=== PATIENT | female | born 1945 | race Caucasian/White ===

== ENCOUNTER 2021-07-08 19:04 | Emergency (ER) | payer MEDICARE ==
--- NOTE | 2021-07-08 20:54 | RAD REPORT ---
EXAM DESCRIPTION: CT - Head Brain Wo Cont - 07/08/2021 8:48 pm CLINICAL HISTORY: Dizziness COMPARISON: 2017 TECHNIQUE: Computed axial tomography of the head was obtained. IV contrast was not requested. All CT scans are performed using dose optimization technique as appropriate and may include automated exposure control or mA/KV adjustment according to patient size. FINDINGS: An intracranial bleed is not seen . The ventricles are normal in caliber. No extra-axial fluid collection is noted. Fluid within the sinuses/ mastoids is not seen. IMPRESSION: No acute intracranial abnormality is seen. If patient's symptoms persist MRI of the bra in would be recommended.
[2021-07-08 21:01] LABS: Absolute Lymphocytes (CBC) 2.1 K/uL (0.7-4.9); Basophils % 0.8 % (0-1.3); Lymphocytes % 22.9 % (15.3-44.8); MPV 8.8 fL (7.6-11.3); RBC Red Blood Cell Count 4.46 M/uL (3.86-4.86)
[2021-07-08 21:04] LABS: Urine Blood Negative (Negative); Urine Glucose Negative (Negative); Urine Protein Negative (Negative)
[2021-07-08 21:19] LABS: Protime INR 0.99
[2021-07-08 21:25] LABS: ALT/SGPT 24 U/L (12-78); Albumin 3.8 g/dL (3.4-5.0); Alkaline Phosphatase 138 U/L (45-117); BUN Blood Urea Nitrogen 22 mg/dL (7-18); Bicarbonate 28 mmol/L (21-32); Bilirubin Direct 0.1 mg/dL (0-0.2); Bilirubin Total 0.9 mg/dL (0.2-1.0); Glucose Level 121 mg/dL (74-106); NT PRO-BNP 411 pg/mL (<450); Protein, Total 8.5 g/dL (6.4-8.2); Sodium Level 140 mmol/L (136-145); Troponin (Emerg Dept Use Only) < 0.02 ng/mL (0.0-0.045)
[2021-07-08 21:30] LABS: AST/SGOT 40 U/L (15-37); Magnesium 2.3 mg/dL (1.8-2.4); Potassium 4.7 mmol/L (3.5-5.1)
[2021-07-08 21:38] LABS: Urine Bacteria <20 /HPF (<20); Urine Mucus 1+ /HPF (NONE SEEN); Urine RBC <5 /HPF (NONE SEEN)
--- NOTE | 2021-07-08 21:51 | RAD REPORT ---
EXAM DESCRIPTION: Bridgett Single View07/08/2021 9:20 pm CLINICAL HISTORY: Tachycardia COMPARISON: 2019 FINDINGS: Several nodules are present within the lungs bilaterally. Moderate to marked bilateral pulmonary opacities have mildly progressed. Bilateral upper lobe scarring is present. The lungs are hyperaerated. Heart is normal size IMPRESSION: Moderate to marked bilateral pulmonary opacities have mildly progressed. This probably i ndicates an infectious process superimposed over pulmonary fibrosis and bronchiectasis. Several lung nodules probably infectious copd
[2021-07-08] MEDS ORDERED: NA CHLORIDE 0.9% 500 ML ONE (21:59)
[2021-07-08] MEDS ORDERED: levoFLOXacin 500 MG TAB ONE (23:13)
--- NOTE | 2021-07-08 23:15 | ER ---
Nurse's Notes [facility] Name: Licha Nino Age: 76 yrs Sex: Female : 1945 Arrival Date: 07/08/2021 Time: 19:09 Bed 18 Private MD: Diagnosis: Dizziness and giddiness;Pneumonia, unspecified organism Presentation: 07/08 19:13 Chief complaint: Patient states: Pt was eating dinner about 30 minutes ago, got up to vg1 go to bathroom and felt dizzy and began to sweat. Pt states about two days ago, pt felt 'drunk'. Pt states was walking and was trying to go the to right but felt like her body wanted to go the other way. Coronavirus screen: Vaccine status: Patient reports being unvaccinated. Ebola Screen: Patient negative for fever greater than or equal to 101.5 degrees Fahrenheit, and additional compatible Ebola Virus Disease symptoms. No acute neurological deficit is noted. Initial Sepsis Screen: Does the patient meet any 2 criteria? No. Patient's initial sepsis screen is negative. Does the patient have a suspected source of infection? No. Patient's initial sepsis screen is negative. Risk Assessment: Do you want to hurt yourself or someone else? Patient reports no desire to harm self or others. Onset of symptoms was July 06, 2021. 19:13 Method Of Arrival: Ambulatory vg1 19:13 Acuity: AZAM 3 vg1 Triage Assessment: 19:19 The onset of the patients symptoms was more than six hours ago. General: Appears in no vg1 apparent distress. comfortable, Behavior is calm, cooperative. Pain: Denies pain. Neuro: Level of Consciousness is awake, alert, obeys commands, Oriented to person, place, time, situation, Web Engineer are equal bilaterally Gait is steady, Speech is normal, Facial symmetry appears normal. Historical: - Allergies: 19:19 Codeine; vg1 19:19 Demerol; vg1 19:19 Sulfa (Sulfonamide Antibiotics); vg1 - PMHx: 19:19 COPD; Myocardial infarction; vg1 19:22 Hypoglycemia; vg1 - Immunization history:: Adult Immunizations up to date, Client reports having NOT received the Covid vaccine. - Social history:: Smoking status: Patient/guardian denies using tobacco, the patient reports quitting approximately 30 years ago. Screenin:50 Abuse screen: Denies threats or abuse. Denies injuries from another. Nutritional sj1 screening: No deficits noted. Tuberculosis screening: No symptoms or risk factors identified. Fall Risk None identified. Assessment: 19:50 VAN Scoring: Arm Drift: Patients demonstrates NO arm weakness. Patient is VAN Negative. sj1 Visual Disturbance: No visual disturbance noted. Aphasia: No aphasia noted. Neglect: No neglect noted. The patient has not been NPO before screening. The patient is alert, and able to follow commands. The patient does not exhibit slurred or garbled speech. The patient is not exhibiting difficulty speaking. The patient does not exhibit difficulty understanding words. The patient is able to swallow own secretions with no drooling or need for suction. Patient tolerated one teaspoon of water. No drooling, immediate coughing, gurgling, or clearing of the throat was noted. The patient tolerated 90mL of water. No drooling, immediate coughing, gurgling, or clearing of the throat was noted. The patient passed the bedside swallow screening. Oral medications may be given as ordered. Contact Physician for further diet orders. Provider notified of bedside swallow screening results: Andrea Washington MD. Pain: Denies pain. Neuro: No deficits noted. Reports pt states around 1800 she was out to eat and she walked to the bathroom and started to feel hot and dizzy. denies weakness. Bilat equal infrastructure engineer, gait steady, no facial drooping, speech clear. denies s/s at this time. Cardiovascular: No deficits noted. Respiratory: No deficits noted. GI: No deficits noted. : No deficits noted. EENT: No deficits noted. Derm: No deficits noted. Musculoskeletal: No deficits noted. 20:02 Reassessment: notified of patient s/s. sj1 Vital Signs: 19:13 BP 105 / 93; Pulse 125; Resp 16; Temp 98.1; Pulse Ox 100% ; Height 5 ft. 8 in. (172.72 vg1 cm); Pain 0/10; 22:36 BP 150 / 71; Pulse 88; Resp 18 S; Temp 97.9(O); Pulse Ox 100% on R/A; Pain 0/10; sj1 23:34 BP 125 / 79; Pulse 89; Resp 18; Temp 99.1(O); Pulse Ox 100% ; Pain 0/10; sj1 Vitals: 19:50 Cardiac Rhythm Assessment Regular Sinus tach. sj1 [place] Coma Score: 19:50 Eye Response: spontaneous(4). Verbal Response: oriented(5). Motor Response: obeys sj1 commands(6). Total: 15. NIH Stroke Scale Scores: 19:50 NIHSS Score: 0 sj1 20:33 NIHSS Score: 0 cp ED Course: 19:09 Patient arrived in ED. ja2 19:19 Triage completed. vg1 19:19 Arm band placed on. vg1 19:50 No apparent distress. Awaiting ED provider evaluation. sj1 19:50 Patient has correct armband on for positive identification. Placed in gown. Bed in low sj1 position. Call light in reach. Side rails up X 1. Door closed. Noise minimized. Lights dimmed. Warm blanket given. 19:50 No provider procedures requiring assistance completed. Inserted saline lock: 18 gauge sj1 in right antecubital area, using aseptic technique. Blood collected. 20:02 Andrea Washington MD is Attending Physician. pkl 20:19 Singh Khalil PA is PHCP. cp 20:48 CT Head Brain wo Cont In Process Unspecified. EDMS 21:20 XRAY Chest (1 view) In Process Unspecified. EDMS 22:23 CT Head Angio In Process Unspecified. EDMS 22:23 CT Neck Angio In Process Unspecified. EDMS 22:45 Urine Culture Sent. sj1 23:35 IV discontinued, intact, bleeding controlled, No redness/swelling at site. sj1 Administered Medications: 21:32 Not Given (Patient Refused): Meclizine 25 mg PO once sj1 21:36 Drug: NS 0.9% 500 ml Route: IV; Rate: 500 ml/hr; Site: right antecubital; sj1 22:48 Drug: LevaQUIN (levofloxacin) 500 mg Route: PO; sj1 23:26 Follow up: Response: Medication administered at discharge. sj1 Point of Care Testing: Blood Glucose: 20:00 Blood Glucose: 110 mg/dL; sj1 Ranges: Outcome: 23:15 Discharge ordered by . cp 23:34 Discharged to home ambulatory. sj1 23:34 Condition: stable 23:34 Discharge instructions given to patient, Instructed on discharge instructions, follow up and referral plans. medication usage, Demonstrated understanding of instructions, follow-up care, medications. 23:36 Patient left the ED. sj1 NIH Stroke Scale - NIH Stroke Score Date: 07/08/2021 Time: 19:50 Total Score = 0 1a. Level of Consciousness (LOC) - 0(Alert) 1b. Level of Consciousness (LOC) (Month \T\ Age) - 0(Both) 1c. LOC Commands (Open \T\ Closes Eyes/Trash Collector Supervisor) - 0(Both) 2. Best Gaze (Lateral Gaze Paresis) - 0(Normal) 3. Visual Field Loss - 0(No visual loss) 4. Facial Palsy - 0(Normal) 5a. Left Arm: Motor (10-second hold) - 0(No drift) 5b. Right Arm: Motor (10-second hold) - 0(No drift) 6a. Left Leg: Motor (5-second hold - always test supine) - 0(No drift) 6b. Right Leg: Motor (5-second hold - always test supine) - 0(No drift) 7. Limb Ataxia (finger/nose \T\ heel/fregoso - test with eyes open) - 0(Absent) 8. Sensory Loss (pinprick arms/legs/face) - 0(Normal) 9. Best Language: Aphasia (description/naming/reading) - 0(No aphasia) 10. Dysarthria (speech clarity - read or repeat words) - 0(Normal) 11. Extinction and Inattention (visual/tactile/auditory/spatial/personal) - 0(No abnormality) Initials: 1 NIH Stroke Scale - NIH Stroke Score Date: 07/08/2021 Time: 20:33 Total Score = 0 1a. Level of Consciousness (LOC) - 0(Alert) 1b. Level of Consciousness (LOC) (Month \T\ Age) - 0(Both) 1c. LOC Commands (Open \T\ Closes Eyes/Trash Collector Supervisor) - 0(Both) 2. Best Gaze (Lateral Gaze Paresis) - 0(Normal) 3. Visual Field Loss - 0(No visual loss) 4. Facial Palsy - 0(Normal) 5a. Left Arm: Motor (10-second hold) - 0(No drift) 5b. Right Arm: Motor (10-second hold) - 0(No drift) 6a. Left Leg: Motor (5-second hold - always test supine) - 0(No drift) 6b. Right Leg: Motor (5-second hold - always test supine) - 0(No drift) 7. Limb Ataxia (finger/nose \T\ heel/fregoso - test with eyes open) - 0(Absent) 8. Sensory Loss (pinprick arms/legs/face) - 0(Normal) 9. Best Language: Aphasia (description/naming/reading) - 0(No aphasia) 10. Dysarthria (speech clarity - read or repeat words) - 0(Normal) 11. Extinction and Inattention (visual/tactile/auditory/spatial/personal) - 0(No abnormality) Initials: cp Signatures: Dispatcher [employer] EDAndrea Truong MD MD pkl Singh Khalil PA PA cp Garcia, Victoria, RN RN vg1 Madalyn Nolan Sade, RN RN sj1
--- NOTE | 2021-07-08 23:15 | EDPHYS ---
Physician Documentation [facility] Name: Licha Nino Age: 76 yrs Sex: Female : 1945 Arrival Date: 07/08/2021 Time: 19:09 Bed 18 Private MD: ED Physician Andrea Washington HPI: 07/08 20:25 This 76 yrs old Female presents to ER via Ambulatory with complaints of cp Dizziness, S/S of Possible Stroke. 20:25 The patient presents with generalized weakness, lightheadedness, feeling off balance. cp 20:25 Onset: The symptoms/episode began/occurred 2 day(s) ago, intermittent, patient reports cp episode approximately 30 minutes ago after getting up to use restroom. Patient reports feeling hot all over. Associated signs and symptoms: Pertinent negatives: abdominal pain, blurred vision, chest pain, focal weakness, headache, near-syncope, numbness, palpitations, shortness of breath, syncope. Patient's baseline: Neuro: alert and fully oriented, Motor: no deficits, Ambulation: walks without assistance, Speech: normal. Historical: - Allergies: 19:19 Codeine; vg1 19:19 Demerol; vg1 19:19 Sulfa (Sulfonamide Antibiotics); vg1 - PMHx: 19:19 COPD; Myocardial infarction; vg1 19:22 Hypoglycemia; vg1 - Immunization history:: Adult Immunizations up to date, Client reports having NOT received the Covid vaccine. - Social history:: Smoking status: Patient/guardian denies using tobacco, the patient reports quitting approximately 30 years ago. ROS: 20:30 Constitutional: Negative for body aches, chills, fever, poor PO intake. cp 20:30 Eyes: Negative for injury, pain, redness, and discharge. cp Exam: 19:55 ECG was reviewed by the Attending Physician. cp 20:33 Constitutional: The patient appears in no acute distress, alert, awake, cp non-diaphoretic, non-toxic, well developed, frail. 20:33 Head/Face: Normocephalic, atraumatic. cp 20:33 Eyes: Periorbital structures: appear normal, Conjunctiva: normal, no exudate, no injection, Sclera: no appreciated abnormality, Lids and lashes: appear normal, bilaterally. 20:33 ENT: External ear(s): are unremarkable, Nose: is normal, Mouth: Lips: moist, Oral mucosa: moist, Posterior pharynx: Airway: no evidence of obstruction, patent. 20:33 Neck: ROM/movement: is normal, is supple, without pain, no range of motions limitations, no meningismus. 20:33 Chest/axilla: Inspection: normal, Palpation: is normal, no crepitus, no tenderness. 20:33 Cardiovascular: Rate: tachycardic, Rhythm: regular, Edema: is not appreciated, JVD: is not appreciated. 20:33 Respiratory: the patient does not display signs of respiratory distress, Respirations: normal, no use of accessory muscles, no retractions, labored breathing, is not present, Breath sounds: are clear throughout, no decreased breath sounds, no stridor, no wheezing. 20:33 Abdomen/GI: Inspection: abdomen appears normal, Bowel sounds: active, all quadrants, Palpation: abdomen is soft and non-tender, in all quadrants. 20:33 Back: pain, is absent, ROM is normal. 20:33 Neuro: Orientation: to person, place \T\ time. Mentation: is normal, Cerebellar function: Romberg testing is negative, normal finger to nose testing, heel to fregoso testing is normal, Motor: moves all fours, strength is normal, Sensation: is normal. Vital Signs: 19:13 BP 105 / 93; Pulse 125; Resp 16; Temp 98.1; Pulse Ox 100% ; Height 5 ft. 8 in. (172.72 vg1 cm); Pain 0/10; 22:36 BP 150 / 71; Pulse 88; Resp 18 S; Temp 97.9(O); Pulse Ox 100% on R/A; Pain 0/10; sj1 23:34 BP 125 / 79; Pulse 89; Resp 18; Temp 99.1(O); Pulse Ox 100% ; Pain 0/10; sj1 NIH Stroke Scale Scores: 19:50 NIHSS Score: 0 sj1 20:33 NIHSS Score: 0 cp Earlene Coma Score: 19:50 Eye Response: spontaneous(4). Verbal Response: oriented(5). Motor Response: obeys sj1 commands(6). Total: 15. MDM: 20:02 Patient medically screened. pkl 23:15 Data reviewed: vital signs, nurses notes, lab test result(s), EKG, radiologic studies, cp CT scan, plain films. 23:15 Test interpretation: by ED physician or midlevel provider: ECG, plain radiologic cp studies. 07/08 19:53 Order name: Glucose, Ancillary Testing; Complete Time: 21:05 [facility] 07/08 20:21 Order name: Urine Microscopic Only; Complete Time: 22:18 07/08 22:18 Interpretation: Normal except: UWBC 10-20. 07/08 20:21 Order name: Basic Metabolic Panel; Complete Time: 22:18 07/08 22:18 Interpretation: Normal except: GLUC 121; BUN 22; GFR 52. 07/08 20:21 Order name: CBC with Diff; Complete Time: 21:19 07/08 20:21 Order name: LFT's; Complete Time: 22:18 cp 07/08 22:18 Interpretation: Normal except: AST 40; ALK 138; TP 8.5; GLOB 4.7; A/G 0.8. 07/08 20:21 Order name: Magnesium; Complete Time: 22:18 07/08 20:21 Order name: CT Head Brain wo Cont; Complete Time: 21:05 07/08 21:05 Interpretation: Report reviewed. 07/08 20:21 Order name: NT PRO-BNP; Complete Time: 22:18 07/08 20:21 Order name: PT-INR; Complete Time: 22:18 07/08 20:21 Order name: Troponin (emerg Dept Use Only); Complete Time: 22:18 07/08 20:21 Order name: XRAY Chest (1 view); Complete Time: 22:18 07/08 21:04 Order name: Urine Dipstick-Ancillary [facility] 07/08 21:21 Order name: CT Head Angio 07/08 21:39 Order name: Urine Culture [facility] 07/08 20:21 Order name: Urine Dipstick-Ancillary (obtain specimen); Complete Time: 21:19 cp 07/08 20:21 Order name: EKG; Complete Time: 20:21 cp 07/08 20:21 Order name: Cardiac monitoring; Complete Time: 20:27 cp 07/08 20:21 Order name: EKG - Nurse/Tech; Complete Time: 20:27 cp 07/08 20:21 Order name: IV Saline Lock; Complete Time: 20:27 cp 07/08 20:21 Order name: Labs collected and sent; Complete Time: 20:27 cp 07/08 20:21 Order name: O2 Per Protocol; Complete Time: 20:27 cp 07/08 20:21 Order name: O2 Sat Monitoring; Complete Time: 20:27 cp 07/08 21:21 Order name: CT Neck Angio cp 07/08 22:33 Order name: Vital Signs: please update to include temp; Complete Time: 22:45 cp 07/08 22:34 Order name: Misc. Order: please ambulate patient; Complete Time: 22:35 cp EC:55 Rate is 116 beats/min. Rhythm is regular. AL interval is normal. QRS interval is cp normal. QT interval is normal. T waves are Inverted in leads aVL, aVR. Interpreted by me. Reviewed by me. Administered Medications: 21:32 Not Given (Patient Refused): Meclizine 25 mg PO once sj1 21:36 Drug: NS 0.9% 500 ml Route: IV; Rate: 500 ml/hr; Site: right antecubital; sj1 22:48 Drug: LevaQUIN (levofloxacin) 500 mg Route: PO; sj1 23:26 Follow up: Response: Medication administered at discharge. sj1 Point of Care Testing: Blood Glucose: 20:00 Blood Glucose: 110 mg/dL; sj1 Ranges: Critical Glucose Levels:Adult <50 mg/dl or >400 mg/dl <40 mg/dl or >180 mg/dl Disposition: 07/09 00:18 Co-signature as Attending Physician, Andrea Washington MD. pkl Disposition Summary: 07/08/21 23:15 Discharge Ordered Location: Home cp Problem: new cp Symptoms: have improved cp Condition: Stable cp Diagnosis - Dizziness and giddiness cp - Pneumonia, unspecified organism cp Followup: cp - With: Private Physician - When: 2 - 3 days - Reason: Recheck today's complaints Discharge Instructions: - Discharge Summary Sheet cp - Dizziness cp - Community-Acquired Pneumonia, Adult cp - Pulmonary Nodule cp Forms: - Medication Reconciliation Form cp - Thank You Letter cp - Antibiotic Education cp - Prescription Opioid Use cp Prescriptions: - levofloxacin 500 mg Oral tablet - take 1 tablet by ORAL route once daily for 10 days start taking evening of cp 07-09-2021; 9 tablet; Refills: 0, Product Selection Permitted NIH Stroke Scale - NIH Stroke Score Date: 07/08/2021 Time: 19:50 Total Score = 0 1a. Level of Consciousness (LOC) - 0(Alert) 1b. Level of Consciousness (LOC) (Month \T\ Age) - 0(Both) 1c. LOC Commands (Open \T\ Closes Eyes/Oracle Bpm Consultant) - 0(Both) 2. Best Gaze (Lateral Gaze Paresis) - 0(Normal) 3. Visual Field Loss - 0(No visual loss) 4. Facial Palsy - 0(Normal) 5a. Left Arm: Motor (10-second hold) - 0(No drift) 5b. Right Arm: Motor (10-second hold) - 0(No drift) 6a. Left Leg: Motor (5-second hold - always test supine) - 0(No drift) 6b. Right Leg: Motor (5-second hold - always test supine) - 0(No drift) 7. Limb Ataxia (finger/nose \T\ heel/fregoso - test with eyes open) - 0(Absent) 8. Sensory Loss (pinprick arms/legs/face) - 0(Normal) 9. Best Language: Aphasia (description/naming/reading) - 0(No aphasia) 10. Dysarthria (speech clarity - read or repeat words) - 0(Normal) 11. Extinction and Inattention (visual/tactile/auditory/spatial/personal) - 0(No abnormality) Initials: sj1 NIH Stroke Scale - NIH Stroke Score Date: 07/08/2021 Time: 20:33 Total Score = 0 1a. Level of Consciousness (LOC) - 0(Alert) 1b. Level of Consciousness (LOC) (Month \T\ Age) - 0(Both) 1c. LOC Commands (Open \T\ Closes Eyes/Oracle Bpm Consultant) - 0(Both) 2. Best Gaze (Lateral Gaze Paresis) - 0(Normal) 3. Visual Field Loss - 0(No visual loss) 4. Facial Palsy - 0(Normal) 5a. Left Arm: Motor (10-second hold) - 0(No drift) 5b. Right Arm: Motor (10-second hold) - 0(No drift) 6a. Left Leg: Motor (5-second hold - always test supine) - 0(No drift) 6b. Right Leg: Motor (5-second hold - always test supine) - 0(No drift) 7. Limb Ataxia (finger/nose \T\ heel/fregoso - test with eyes open) - 0(Absent) 8. Sensory Loss (pinprick arms/legs/face) - 0(Normal) 9. Best Language: Aphasia (description/naming/reading) - 0(No aphasia) 10. Dysarthria (speech clarity - read or repeat words) - 0(Normal) 11. Extinction and Inattention (visual/tactile/auditory/spatial/personal) - 0(No abnormality) Initials: cp Signatures: Dispatcher [employer] EDMS Andrea Washington MD MD pkl Page, Corey, PA PA cp Garcia, Victoria, RN RN vg1 Xiao Akhtar RN RN sj1 Corrections: (The following items were deleted from the chart) 07/08 20:28 20:21 Chest Single View+RAD.RAD.BRZ ordered. EDMS EDMS 22:30 22:21 Chest For PE Angio+CT.RAD.[email or web address] ordered. EDMS EDMS
[2021-07-08 23:40] VITALS: O2SAT 100
[2021-07-08 23:44] VITALS: BP 125/79; TEMP 99.1
--- NOTE | 2021-07-10 20:11 | RAD REPORT ---
EXAM DESCRIPTION: 1. CTA of the head with contrast. 2. CTA of the neck with contrast. CLINICAL HISTORY: 76 years, Female, DIZZINESS COMPARISON: 07/18/2021 TECHNIQUE: Axial CTA images of the head and neck obtained following the uncomplicated intravenous ad ministration of iodinated contrast. 3-D/MIP reformatted images available. This exam was performed acc ording to our departmental dose-optimization program, which includes automated exposure control, adju stment of the mA and/or kV according to patient size and/or use of iterative reconstruction technique . FINDINGS: CTA head: In the anterior circulation, the intracranial internal carotid arteries have normal course and calibe r. Minimal atherosclerotic plaque at the paraclinoid internal carotid arteries. The internal carotid arteries bifurcate into widely patent A1 and M1 segments of the anterior and middle cerebral arteries respectively. No evidence of flow-limiting stenosis, aneurysm, occlusion, or dissection in the anter ior circulation. The anterior communicating artery is patent. In the posterior circulation, the intracranial vertebral arteries combine to form a widely patent bas ilar artery. The basilar artery bifurcates into widely patent P1 segments of the posterior cerebral a rtery. No evidence of stenosis, aneurysm, occlusion, or dissection in the posterior circulation. No definite acute intracranial abnormality identified. No acute abnormality of the osseous calvarium. Paranasal sinuses and mastoid air cells are well aerated. CTA NECK: The origins of the great vessels are not visualized on this study. The right common carotid artery is widely patent and bifurcates into widely patent internal and exter nal carotid arteries. 0% stenosis by NASCET criteria. No evidence of occlusion or dissection. The visualized left common carotid artery is widely patent and bifurcates into widely patent internal and external carotid arteries. Mild nonflow limiting atherosclerotic plaque. 0% stenosis by NASCET c riteria. No evidence of occlusion or dissection. The cervical vertebral arteries are widely patent throughout their course. No evidence of occlusion, stenosis, or dissection. No definite acute abnormalities in the neck soft tissues. No apical pneumothorax. Incompletely visual ized peripheral opacities in the visualized lung apices. No acute osseous abnormalities. Endplate spo ndylosis of the spine. IMPRESSION: 1. No evidence of stenosis, occlusion, or aneurysm in the intracranial arterial circul ation. 2. No evidence of stenosis/occlusion of the cervical carotid or vertebral arteries. 3. Incompletely visualized peripheral opacities in the visualized lung apices. Findings could be se en with acute bilateral pneumonic process or chronic lung disease. CT of the chest would provide yasmin tional characterization. Electronically signed by: Wu Torres 07/08/2021 10:59 PM CDT Due to temporary technical issues with the PACS/Fluency reporting system, reports are being signed by the in house radiologists without review as a courtesy to insure prompt reporting. The interpreting radiologist is fully responsible for the content of the report.
== END 2021-07-08 23:36 | disposition home or self-care (01) ==
LOC: ER 19:04
DX: J18.9 Pneumonia, unspecified organism (principal); J44.9 Chronic obstructive pulmonary disease, unspecified; I25.2 Old myocardial infarction; Z88.2 Allergy status to sulfonamides; Z88.5 Allergy status to narcotic agent
CPT/HCPCS: 93005; 87088; 85025; 87086; 80048; 36415; 83735; 85610; 82947; 80076; 84484; 83880; 70450; 70496; 70498; 71045; 99284; Q9967; J7040; 81003; 81015

== ENCOUNTER 2022-03-23 17:21 | Emergency (ER) | payer MEDICARE ==
--- OUTSIDE RECORDS SUMMARY | 2022-03-23 17:24 | XMS REPORT | Continuity of Care Document ---
:1945 Author Organization [facility] t Address [address] [place] [address] Care Team Providers Name Role Phone ZACK OROZCO Primary Care Physician Unavailable Ana GODFREY Attending Clinician Unavailable Ana Godfrey DO Attending Clinician Lab, Fam Pob I Attending Clinician Unavailable KENTRELL Attending Clinician Unavailable Kentrell DETECTIVE CHIEF Attending Clinician Ana GODFREY Admitting Clinician Unavailable Payers Payer Name Policy Type Policy Number Effective Date Expiration Date Lito jenniferpoppy CLEOPATRA/GÓMEZ [id number] 2020 MEDICARE ADVANTAGE 00:00:00 Problems Condition Condition Condition Status Onset Resolution Last Treating Co mments Source Name Details Category Date Date Treatment Clinician Date No known No known Disease Unive rs active active ity of problems problems [facility] Allergies, Adverse Reactions, Alerts Allergy Allergy Status Severity Reaction(s) Onset Inactive Treating Comm ents Source Name Type Date Date Clinician Codeine Propensi Active Rash 2006-10 Univers ty to 0-26 ity of adverse 00:00: [place] reaction 00 [facility] CODEINE DRUG Active Rash 2006-10 Univers INGREDI 0-26 ity of 00:00: [place] [facility] MEPERIDI DRUG Active CONTACT DERM 2006-10 Un michael [place] HCL INGREDI 0-26 ity of 00:00: [place] [facility] Meperidi Propensi Active Dermatis, 2006-10 Uni vers ne Hcl ty to Contact 0-26 ity of adverse 00:00: [place] reaction 00 [facility] Social History Social Habit Start Date Stop Date Quantity Comments Source History of tobacco Cigarette Smoker [facility] Exposure to 2022-02-15 2022-02-25 Not sure University SARS-CoV-2 (event) 00:00:00 10:17:00 [facility] Cigarettes smoked 2018-07-15 2018-07-15 Univers ity of current (pack per 00:00:00 00:00:00 [facility] ) - Reported Branch Cigarette 2018-07-15 2018-07-15 [place] of pack-years 00:00:00 00:00:00 [facility] Alcohol intake 2018-07-15 2018-07-15 University of 00:00:00 00:00:00 [facility] Tobacco Comment 2007-07-26 2007-07-26 Quit twenty [facility] of 00:00:00 00:00:00 Years ago. [facility] Sex Assigned At [address] [facility] 00:[facility] 00:00:00 [facility] Smoking Status Start Date Stop Date Source Former smoker 2018-07-15 00:00:00 2018-07-15 00:00:[address] [facility] Medications Ordered Filled Start Stop Current Ordering Indication Dosage Frequency Signature Comments Components Source Medication Medication Date Date Medication? Clinician (SIG) Name Name NaCl 0.9% 2021- No 1000mL at 999 Uni vers (NS) bolus 5-28 05-28 mL/hr, ity of infusion 16:45: 16:53 1,000 mL, Kar as 1,000 mL 00 :00 IV Medical Infusion, Branch ONCE, 1 dose, On 02/25/22 at 1145, LAMIN pantoprazol Yes 40mg Take 40 mg Univers e 20 mg EC 5-28 by mouth ity o f tablet 12:44: daily. [place] 14 [facility] Levothyroxi Yes 112ug Take 112 U nivers ne 112 mcg 5-28 mcg by ity of capsule 12:44: mouth [place] 14 daily. Medical Branch ALBUTEROL Yes 2 puffs Unive rs 90 5-28 BID PRN ity of MCG/ACTUATI 10:22: [place] ON INHALE 21 Medical AERO Branch Thyroid, Yes Take by Unive rs Pork, 5-28 mouth. ity of (ARMOUR 10:22: [place] THYROID) 90 21 Medical mg Tab Branch Thyroid, Yes Take by Unive rs Pork, 8-11 mouth. ity of (ARMOUR 17:58: [place] THYROID) 90 40 Medical mg Tab Branch Thyroid, Yes Take by Unive rs Pork, 8-11 mouth. ity of (ARMOUR 17:58: [place] THYROID) 90 40 Medical mg Tab Branch traMADOL Yes 50mg Take 1 Tab Uni vers (ULTRAM) 50 8-11 by mouth 2 it y of mg tablet 00:00: (two) [place] 00 times Medical daily Branch before breakfast and dinner. traMADOL Yes 50mg Take 1 Tab Uni vers (ULTRAM) 50 8-11 by mouth 2 it y of mg tablet 00:00: (two) [place] 00 times Medical daily Branch before breakfast and dinner. traMADOL Yes 50mg Take 1 Tab Uni vers (ULTRAM) 50 8-11 by mouth 2 it y of mg tablet 00:00: (two) [place] 00 times Medical daily Branch before breakfast and dinner. ALBUTEROL 2006-10 Yes 2 puffs Unive rs 90 0-26 BID PRN ity of MCG/ACTUATI 19:54: [place] ON INHALE 27 Medical AERO Branch ALBUTEROL 2006-10 Yes 2 puffs Unive rs 90 0-26 BID PRN ity of MCG/ACTUATI 19:54: [place] ON INHALE 27 Medical AERO Branch ASPIRIN 81 2006-10 Yes 1 Tab Oral U nivers MG ORAL 0-04 DAILY ity of CHEW 00:00: [facility] ASPIRIN 81 2006-10 Yes 1 Tab Oral U nivers MG ORAL 0-04 DAILY ity of CHEW 00:00: 00 [facility] ASPIRIN 81 2006-10 Yes 1 Tab Oral U nivers MG ORAL 0-04 DAILY ity of CHEW 00:00: [place] 00 [facility] Immunizations Ordered Filled Immunization Date Status Comments [facility] e Immunization Name Name Influenza Virus 2007-07-26 Completed Universit y of Vaccine 00:00:00 [facility] Influenza Virus 2007-07-26 Completed Universit y of Vaccine 00:00:00 [facility] Influenza Virus 2007-07-26 Completed Universit y of Vaccine 00:00:00 [facility] Vital Signs Vital Name Observation Time Observation Value Comments Source Systolic blood 2022-02-25 17:30:00 123 mm[Hg] [facility]iver [facility] Diastolic blood 2022-02-25 17:30:00 69 mm[facility]Hg[facility] Heart rate 2022-02-25 17:30:00 77 /min [facility] Respiratory rate 2022-02-25 17:30:00 20 /min [facility] Oxygen saturation in 2022-02-25 17:30:00 96 /min [facility] Arterial blood by [facility] Pulse oximetry [place] Body temperature 2022-02-25 15:18:00 36.72 Milena [facility] Body height 2022-02-25 15:18:00 182.9 cm [facility] Body weight 2022-02-25 15:18:00 40.824 kg [facility] BMI 2022-02-25 15:18:00 12.21 kg/m2 [facility] Procedures Procedure Date / Time Performed Performing Clinician Sourc e XR CHEST 1 VW 2022-02-25 15:41:52 Sharyn Godfrey [facility] MAGNESIUM 2022-02-25 15:35:00 Sharyn Godfrey [facility] TROPONIN I 2022-02-25 15:35:00 Sharyn Godfrey [facility] COMP. METABOLIC PANEL 2022-02-25 15:35:00 Sharyn Godfrey [facility] ([id number]) [facility] CBC WITH DIFF 2022-02-25 15:35:00 Sharyn Godfrey [facility] N-TERMINAL PRO-BNP 2022-02-25 15:35:00 Sharyn Godfrey [facility] CONSENT/REFUSAL FOR 2022-02-25 15:16:41 Doctor Unassigned, [facility] AND Name [facility] TREATMENT NOTICE OF PRIVACY 2022-02-25 15:12:25 Doctor Unassigned, No Univ [facility] PRACTICES Name [facility] Encounters Start End Encounter Admission Attending Care Care Encounter Source Date/Time Date/Time Type Type Clinicians Facility Department ID 2022-02-25 2022-02-25 Emergency X EPIFANIO NYNEYMAR ERT [id number] Univers 10:22:00 12:49:00 SHARYN wolf [facility] 2022-02-25 2022-02-25 [facility] [id number] Univers 10:22:00 12:49:00 Sharyn JOSE [id number] ity of [id number] [id number] [address] 2020-08-27 2020-08-27 Telephone Lab, [facility] [id number] Univers 00:00:00 00:00:00 Fam Pob I Health [id number] ity of [place] [id number] Kar as Professio [id number] [address] Office [facility] 2020-08-24 2020-08-24 Outpatient R [facility] [id number] Univers 15:00:00 15:00:00 [id number] maryann [facility] 2020-08-23 2020-08-23 Outpatient R KENTRELL [facility] [id number] Univers 16:00:00 16:00:00 CLAUDIA wolf [facility] 2020-08-23 2020-08-23 Laboratory Lab, [facility] Pob I [facility] [id number] Univers 15:23:19 15:43:19 Only Claudia Pfeiffer [id number] ity of [place] [id number] Kar as Professio [id number] [address] Office [facility] Results Test Description Test Time Test Comments Results Result Comments Source TROPONIN I 2022-02-25 16:38:04 Test Item Value Reference Range Interpretation Comme nts TROPONIN I (test code = <0.012 See_Comment [Au tomated message] The 5325516688) system which ge nerated this result tra nsmitted reference range : <=0.034 ng/mL. The refe rence range was not u sed to interpret this result as normal/abnormal . LORRI (test code = LORRI) Reference (Normal) Range (defined by the 99th percentile reference limit): <= 0.034 ng/mL Note: Cardiac troponin begins to rise 3-4 hours after the onset of ischemia. Repeat in 4-6 hours if the sample was drawn within 3-4 hours of the onset of the symptom and found normal. Diagnosis of myocardial injury is made with acute changes in cTn concentrations with at least one serial sample above the 99th percentile upper reference limit (URL), taken together with the patient's clinical presentation. Biotin has been reported to cause a negative bias, interpret results relative to patient's use of biotin. Lab Interpretation Normal (test code = 48165-5) [place] [facility] [id number] 16:34:43 Test Item Value Reference Range Interpretation Comments NT-proBNP (test code 422 pg/mL See_Comment [Autom ated = 6012146945) message] The system which generated this result transmitted reference range : <=450. The reference range was not used to interpret this result as normal/abnormal . LORRI (test code = LORRI) Biotin has been reported to cause a negative bias, interpret results relative to patient's use of biotin. Lab Interpretation Normal (test code = 46708-0) [facility]2022-05-28 16:26:26 Test Item Value Reference Range Interpretation Comments MAGNESIUM (test code = 0245898892) 1.9 mg/dL 1.7-2.4 Lab Interpretation (test code = Normal 51649-4) [facility] MET[facility]OL[facility] PAN[facility] (67946)2022-02-25 16:26:06 Test Item Value Reference Range Interpretation Comments NA (test code = 140 mmol/L 135-145 8076248055) K (test code = 4.1 mmol/L 3.5-5.0 2331787156) CL (test code = 102 mmol/L 98-108 5659569214) CO2 TOTAL (test code = 24 mmol/L 23-31 6856220875) AGAP (test code = 2-16 0553861144) BUN (test code = 18 mg/dL 7-23 3137265522) GLUCOSE (test code = 125 mg/dL 70-110 H 2644315804) CREATININE (test code = 0.79 mg/dL 0.50-1.04 6804603828) TOTAL BILI (test code = 1.2 mg/dL 0.1-1.1 H 4302132271) CALCIUM (test code = 9.2 mg/dL 8.6-10.6 3122011823) T PROTEIN (test code = 7.8 g/dL 6.3-8.2 9656699948) ALBUMIN (test code = 4.2 g/dL 3.5-5.0 1103075918) ALK PHOS (test code = 124 U/L 34-122 H 1179681313) ALTv (test code = 10 U/L 5-35 1742-6) AST(SGOT) (test code = 23 U/L 13-40 4657630536) eGFR (test code = mL/min/1.73m2 6580781550) LORRI (test code = LORRI) Association of Glomerular Filtration Rate (GFR) and Staging of Kidney Disease* + --+ --+ ------+| GFR (mL/min/1.73 m2) ?| With Kidney Damage ?| ?Without Kidney Damage+ --------+ --------+ +| ?>90 ?| ?Stage one ?| ? Normal ?+ ---+ ---+ -------+| ?60-89 ?| ?Stage two ?| ? Decreased GFR ? + --+ --+ ------+| ?30-59 ?| ?Stage three ?| ? Stage three ? + --+ --+ ------+| ?15-29 ?| ?Stage four ? | ? Stage four ?+ ---+ ---+ -------+| ?<15 (or dialysis) ? ?| ?Stage five ? | ? Stage five ?+ ---+ ---+ -------+ *Each stage assumes the associated GFR level has been in effect for at least three months. ?Stages 1 to 5, with or without kidney disease, indicate chronic kidney disease. Notes: Determination of stages one and two (with eGFR >59mL/min/1.73 m2) requires estimation of kidney damage for at least three months as defined by structural or functional abnormalities of the kidney, manifested by either:Pathological abnormalities or Markers of kidney damage (including abnormalities in the composition of the blood or urine or abnormalities in imaging tests). Lab Interpretation Abnormal (test code = 59703-8) [facility] WITH [id number] 16:09:42 Test Item Value Reference Range Interpretation Comments WBC (test code = See_Comment [Automated 6690-2) message] The sy stem which generated this result transmitted reference range : 4.30 - 11.10 10*3/?L. The reference range was not used to interpret this result as normal/abnormal . RBC (test code = See_Comment [Automated 789-8) message] The sy stem which generated this result transmitted reference range : 3.93 - 5.25 10*6/?L. The reference range was not used to interpret this result as normal/abnormal . HGB (test code = 12.3 g/dL 11.6-15.0 718-7) HCT (test code = 38.7 % 35.7-45.2 4544-3) MCV (test code = 87.6 fL 80.6-95.5 787-2) MCH (test code = 27.8 pg 25.9-32.8 785-6) MCHC (test code = 31.8 g/dL 31.6-35.1 786-4) RDW-SD (test code = 41.1 fL 39.0-49.9 49459-0) RDW-CV (test code = 12.7 % 12.0-15.5 788-0) PLT (test code = See_Comment [Automated 777-3) message] The sy stem which generated this result transmitted reference range : 166 - 358 10*3/ ?L. The reference r lyndsey was not used to interpret this result as normal/abnormal . MPV (test code = 9.9 fL 9.5-12.9 54719-8) NRBC/100 WBC (test See_Comment [Automat ed code = 2232280008) message] The system which generated this result transmitted reference range : 0.0 - 10.0 /100 WBCs. The refer ence range was not u sed to interpret th is result as normal/abnormal . NRBC x10^3 (test code <0.01 See_Comment [Auto mated = 4458266202) message] The s ystem which generated this result transmitted reference range : 10*3/?L. The reference range was not used to interpret this result as normal/abnormal . GRAN MAT (NEUT) % 66.9 % (test code = 770-8) IMM GRAN % (test code 0.40 % = 7798534039) LYMPH % (test code = 21.0 % 736-9) MONO % (test code = 10.2 % 5905-5) EOS % (test code = 0.7 % 713-8) BASO % (test code = 0.8 % 706-2) GRAN MAT x10^3(ANC) 7.10 10*3/uL 1.88-7.09 H (test code = 0067460094) IMM GRAN x10^3 (test 0.04 10*3/uL 0.00-0.06 code = 9855887628) LYMPH x10^3 (test code 2.23 10*3/uL 1.32-3.29 = 731-0) MONO x10^3 (test code 1.08 10*3/uL 0.33-0.92 H = 742-7) EOS x10^3 (test code = 0.07 10*3/uL 0.03-0.39 711-2) BASO x10^3 (test code 0.08 10*3/uL 0.01-0.07 H = 704-7) Lab Interpretation Abnormal (test code = 79968-7) [facility]"
[2022-03-23 17:55] LABS: Absolute Lymphocytes (CBC) 1.4 K/uL (0.7-4.9); Hematocrit 38.2 % (36.0-45.0); Lymphocytes % 12.9 % (15.3-44.8); MPV 7.7 fL (7.6-11.3)
[2022-03-23] MEDS ORDERED: NA CHLORIDE 0.9% 500 ML ONE (17:59)
[2022-03-23 18:01] LABS: Protime INR 1.12
[2022-03-23 18:14] LABS: Albumin 3.2 g/dL (3.4-5.0); Bilirubin Direct 0.2 mg/dL (0-0.2); Magnesium 2.5 mg/dL (1.8-2.4); Potassium 4.4 mmol/L (3.5-5.1); Troponin High Sensitivity 7.7 pg/mL (<58.9)
--- NOTE | 2022-03-23 18:17 | RAD REPORT ---
EXAM DESCRIPTION: RAD - Chest Single View - 03/23/2022 6:00 pm CLINICAL HISTORY: SOB COMPARISON: Chest Pa And Lat (2 Views) dated 08/19/2021; Chest Single View dated 07/08/2021; Chest Pa And Lat (2 Views) dated 07/22/2020; Chest Pa And Lat (2 Views) dated 07/09/2019 FINDINGS: Lines: None. Lungs: Widespread nodularity and architectural distortion which is increased since 08/19/2021. Apical scarring. Pleural: No significant pleural effusions or pneumothorax. Cardiac: The heart size is within normal limits. Bones: No acute fractures. Other: IMPRESSION: Increasing nodularity concerning for worsening acute infection/inflammation superimposed upon chronic changes.
[2022-03-23] MEDS ORDERED: LEVALBUTEROL 1.25 MG/3 ML NEB ONE (18:22)
[2022-03-23] MEDS ORDERED: CEFTRIAXONE 1000 MG/VIAL ONE (19:24)
[2022-03-23] MEDS ORDERED: NA CHLORIDE 0.9% 250 ML ONE (19:24)
[2022-03-23] MEDS ORDERED: AZITHROMYCIN 500 MG INJ IVPB ONE (19:24)
[2022-03-23] MEDS ORDERED: NA CHLORIDE 0.9% 50 ML ONE (19:24)
[2022-03-23] MEDS ORDERED: METHYLPREDNISOLONE 125 MG INJ ONE (19:53)
--- NOTE | 2022-03-23 21:03 | ER ---
Nurse's Notes [facility] Name: Licha Nino Age: 76 yrs Sex: Female : 1945 Arrival Date: 03/23/2022 Time: 17:21 Bed 19 Private MD: Diagnosis: Pneumonia, unspecified organism Presentation: 03/23 17:21 Chief complaint: Patient states: SOB X 3 days. SpO2 97% RA upon arrival to ER. Pt ld1 reports seeing black dots. Coronavirus screen: At this time, the client does not indicate any symptoms associated with coronavirus-19. Ebola Screen: No symptoms or risks identified at this time. Initial Sepsis Screen: Does the patient meet any 2 criteria? No. Patient's initial sepsis screen is negative. Does the patient have a suspected source of infection? No. Patient's initial sepsis screen is negative. Risk Assessment: Do you want to hurt yourself or someone else? Patient reports no desire to harm self or others. Onset of symptoms was March 23, 2022. 17:21 Method Of Arrival: EMS: [facility] ld1 17:21 Acuity: AZAM 3 ld1 Triage Assessment: 17:24 General: Appears in no apparent distress. comfortable, Behavior is calm, cooperative, ld1 appropriate for age. Pain: Denies pain. EENT: No signs and/or symptoms were reported regarding the EENT system. Neuro: Level of Consciousness is awake, alert, obeys commands, Oriented to person, place, time, situation. Cardiovascular: Capillary refill < 3 seconds Patient's skin is warm and dry. Respiratory: Reports shortness of breath at rest on exertion Airway is patent Respiratory effort is even, unlabored, Onset: The symptoms/episode began/occurred yesterday, the patient has mild shortness of breath. GI: Abdomen is flat, non-distended. : No signs and/or symptoms were reported regarding the genitourinary system. Derm: No signs and/or symptoms reported regarding the dermatologic system. Musculoskeletal: No signs and/or symptoms reported regarding the musculoskeletal system. Historical: - Allergies: 17:23 Codeine; ld1 17:23 Demerol; ld1 17:23 Sulfa (Sulfonamide Antibiotics); ld1 - PMHx: 17:23 COPD; HYPOGLYCEMIA; Myocardial infarction; ld1 - PSHx: 17:24 None; ld1 - Immunization history:: Adult Immunizations up to date, Client reports having NOT received the Covid vaccine. - Social history:: Smoking status: Patient/guardian denies using tobacco, Patient/guardian denies using alcohol. Screenin:36 Abuse screen: Denies threats or abuse. Denies injuries from another. Nutritional ld1 screening: No deficits noted. Tuberculosis screening: No symptoms or risk factors identified. Fall Risk None identified. Assessment: 18:35 Reassessment: Patient appears in no apparent distress at this time. See MAR for orders. ld1 19:00 Reassessment: Patient and/or family updated on plan of care and expected duration. Pain ll3 level reassessed. Patient is alert, oriented x 3, equal unlabored respirations, skin warm/dry/pink. Patient denies pain at this time. 20:35 Reassessment: No changes from previously documented assessment. Patient and/or family ll3 updated on plan of care and expected duration. Pain level reassessed. Patient is alert, oriented x 3, equal unlabored respirations, skin warm/dry/pink. 21:45 Reassessment: No changes from previously documented assessment. Patient and/or family ll3 updated on plan of care and expected duration. Pain level reassessed. Patient is alert, oriented x 3, equal unlabored respirations, skin warm/dry/pink. 22:01 Cardiovascular: Rhythm is. Respiratory: Respiratory effort is unlabored, Respiratory ll3 pattern is regular, symmetrical, Vital Signs: 17:21 BP 111 / 62; Pulse 104; Resp 18; Temp 98.2(TE); Pulse Ox 97% on R/A; Weight 40.82 kg; ld1 Height 5 ft. 3 in. (160.02 cm); Pain 0/10; 18:35 BP 106 / 66; Pulse 87; Resp 18; Pulse Ox 100% on Nebulizer Mask; ld1 20:00 BP 104 / 61; Pulse 97; Resp 22; Pulse Ox 98% on R/A; ll3 20:35 BP 107 / 59; Pulse 98; Resp 20; Pulse Ox 98% on R/A; ll3 21:45 BP 117 / 81; Pulse 86; Resp 20; Pulse Ox 98% on R/A; ll3 17:21 Body Mass Index 15.94 (40.82 kg, 160.02 cm) ld1 ED Course: 17:21 Patient arrived in ED. ld1 17:23 Triage completed. ld1 17:24 Arm band placed on right wrist. ld1 17:31 Pito Aquino NP is PHCP. pm1 17:31 Diego Oliveira MD is Attending Physician. pm1 17:40 Isabel Weber RN is Primary Nurse. ld1 17:49 Inserted saline lock: 20 gauge in right forearm, using aseptic technique. Blood ld1 collected. 18:02 XRAY Chest (1 view) In Process Unspecified. EDMS 18:36 Patient has correct armband on for positive identification. Placed in gown. Bed in low ld1 position. Call light in reach. Side rails up X2. Pulse ox on. NIBP on. Door closed. Noise minimized. Warm blanket given. 18:36 No provider procedures requiring assistance completed. ld1 20:58 Assisted PT with walk to restroom and back, PT tolerated well. ds4 21:45 IV discontinued, intact, bleeding controlled, No redness/swelling at site. Pressure ll3 dressing applied. Administered Medications: 17:56 Drug: NS 0.9% 500 ml Route: IV; Rate: bolus; Site: right forearm; ld1 18:19 Drug: Xopenex (levalbuterol) 1.25 mg Route: Inhalation; ld1 22:01 Follow up: Response: No adverse reaction ll3 19:24 Drug: Rocephin (cefTRIAXone) 1 grams Route: IV; Rate: calculated rate; Site: right ll3 antecubital; 19:53 Follow up: Response: No adverse reaction; IV Status: Completed infusion; IV Intake: [id number] 19:53 Drug: SOLU-Medrol (methylPrednisoLONE) 125 mg Route: IVP; Site: right antecubital; ll3 22:01 Follow up: Response: No adverse reaction ll3 20:03 Drug: AZITHromycin 500 mg Route: IVPB; Infused Over: 1 hrs; Site: right antecubital; ll3 22:01 Follow up: Response: No adverse reaction; IV Status: Completed infusion; IV Intake: ll3 250ml Medication: 18:36 VIS not applicable for this client. ld1 Intake: 19:53 IV: 50ml; Total: 50ml. ll3 22:01 IV: 250ml; Total: 300ml. ll3 Outcome: 21:03 Discharge ordered by . pm1 21:45 Discharged to home ambulatory. ll3 21:45 Condition: stable 21:45 Discharge instructions given to patient, Instructed on discharge instructions, follow up and referral plans. medication usage, Demonstrated understanding of instructions, follow-up care, medications, Prescriptions given X 4. 22:03 Patient left the ED. ll3 Signatures: Dispatcher [employer] EDMS Cesario Rodríguez ds4 Pito Aquino NP MASTER OCEAN pm1 Isabel Weber, RN RN ld1 Maria M Melgar RN RN ll3 Corrections: (The following items were deleted from the chart) 17:24 17:21 Chief complaint: Patient states: SOB X 3 days. SpO2 97% RA upon arrival to ER. ld1ld1
--- NOTE | 2022-03-23 21:03 | EDPHYS ---
Physician Documentation [facility] Name: Licha Nino Age: 76 yrs Sex: Female : 1945 Arrival Date: 03/23/2022 Time: 17:21 Bed 19 Private MD: ED Physician Diego Oliveira HPI: 03/23 17:40 This 76 yrs old Female presents to ER via EMS with complaints of Shortness Of Breath. pm1 17:40 The patient has shortness of breath with light activity, and the patient has a history pm1 of COPD. Onset: The symptoms/episode began/occurred 2 week(s) ago. Duration: The symptoms are continuous. The patient's shortness of breath is aggravated by not taking her breathing treatments. Associated signs and symptoms: Pertinent negatives: chest pain, non-productive cough, productive cough, fever, nausea, vomiting. Severity of symptoms: in the emergency department the symptoms. The patient has not recently seen a physician, the patient's primary care provider is Dr. Torrez. Patient had lab work performed prior to seeing Dr. Torrez earlier this week. Historical: - Allergies: 17:23 Codeine; ld1 17:23 Demerol; ld1 17:23 Sulfa (Sulfonamide Antibiotics); ld1 - PMHx: 17:23 COPD; HYPOGLYCEMIA; Myocardial infarction; ld1 - PSHx: 17:24 None; ld1 - Immunization history:: Adult Immunizations up to date, Client reports having NOT received the Covid vaccine. - Social history:: Smoking status: Patient/guardian denies using tobacco, Patient/guardian denies using alcohol. ROS: 17:40 Eyes: Negative for injury, pain, redness, and discharge, ENT: Negative for injury, pm1 pain, and discharge, Neck: Negative for injury, pain, and swelling, Cardiovascular: Negative for chest pain, palpitations, and edema. 17:40 Abdomen/GI: Negative for abdominal pain, nausea, vomiting, diarrhea, and constipation, Back: Negative for injury and pain, MS/Extremity: Negative for injury and deformity, Skin: Negative for injury, rash, and discoloration, Neuro: Negative for headache, weakness, numbness, tingling, and seizure. 17:40 Constitutional: Positive for poor PO intake, Negative for body aches, fever. 17:40 Respiratory: Positive for cough, with clear sputum, shortness of breath. 17:40 All other systems are negative. Exam: 17:45 Head/Face: Normocephalic, atraumatic. Cardiovascular: Regular rate and rhythm with a pm1 normal S1 and S2. No gallops, murmurs, or rubs. Normal PMI, no JVD. No pulse deficits. 17:45 Skin: Warm, dry with normal turgor. Normal color with no rashes, no lesions, and no evidence of cellulitis. MS/ Extremity: Pulses equal, no cyanosis. Neurovascular intact. Full, normal range of motion. 17:45 Constitutional: The patient appears in no acute distress, alert, awake, comfortable, non-diaphoretic, non-toxic, well developed, well hydrated, well groomed, emaciated. 17:45 Respiratory: the patient does not display signs of respiratory distress, Respirations: no acute changes, Breath sounds: bronchial sounds, that are mild, are heard diffusely. 17:45 Abdomen/GI: Inspection: abdomen appears normal, Palpation: abdomen is soft and non-tender, in all quadrants. 17:45 Neuro: Exam negative for acute changes, Orientation: is normal, Mentation: is normal, Motor: is normal, moves all fours. Vital Signs: 17:21 BP 111 / 62; Pulse 104; Resp 18; Temp 98.2(TE); Pulse Ox 97% on R/A; Weight 40.82 kg; ld1 Height 5 ft. 3 in. (160.02 cm); Pain 0/10; 18:35 BP 106 / 66; Pulse 87; Resp 18; Pulse Ox 100% on Nebulizer Mask; ld1 20:00 BP 104 / 61; Pulse 97; Resp 22; Pulse Ox 98% on R/A; ll3 20:35 BP 107 / 59; Pulse 98; Resp 20; Pulse Ox 98% on R/A; ll3 21:45 BP 117 / 81; Pulse 86; Resp 20; Pulse Ox 98% on R/A; ll3 17:21 Body Mass Index 15.94 (40.82 kg, 160.02 cm) ld1 MDM: 17:32 Patient medically screened. pm1 18:58 ED course: PSI port score = 65 = outpatient therapy. pm1 20:34 Data reviewed: vital signs. Data interpreted: Pulse oximetry: on room air is 100 %. pm1 Interpretation: normal. Counseling: I had a detailed discussion with the patient and/or guardian regarding: the historical points, exam findings, and any diagnostic results supporting the discharge/admit diagnosis, lab results, radiology results. 03/23 17:39 Order name: Basic Metabolic Panel; Complete Time: 18:16 pm1 03/23 17:39 Order name: CBC with Diff; Complete Time: 17:58 pm1 03/23 17:39 Order name: LFT's; Complete Time: 18:16 pm1 03/23 17:39 Order name: Magnesium; Complete Time: 18:16 pm1 03/23 17:39 Order name: NT PRO-BNP; Complete Time: 18:16 pm1 03/23 17:39 Order name: PT-INR; Complete Time: 18:10 pm1 03/23 17:39 Order name: Troponin HS; Complete Time: 18:16 pm1 03/23 17:39 Order name: XRAY Chest (1 view); Complete Time: 18:32 pm1 03/23 19:34 Order name: COVID-19 SARS RT PCR (Document "Date of Onset" if Symptomatic); Complete pm1 Time: 21:19 03/23 19:34 Order name: Flu; Complete Time: 20:50 pm1 03/23 17:39 Order name: EKG; Complete Time: 17:40 pm1 03/23 17:39 Order name: Cardiac monitoring; Complete Time: 17:41 pm1 03/23 17:39 Order name: EKG - Nurse/Tech; Complete Time: 18:27 pm1 03/23 17:39 Order name: IV Saline Lock; Complete Time: 17:49 pm1 03/23 17:39 Order name: Labs collected and sent; Complete Time: 17:49 pm1 03/23 17:39 Order name: O2 Per Protocol; Complete Time: 17:40 pm1 03/23 17:39 Order name: O2 Sat Monitoring; Complete Time: 17:40 pm1 Administered Medications: 17:56 Drug: NS 0.9% 500 ml Route: IV; Rate: bolus; Site: right forearm; ld1 18:19 Drug: Xopenex (levalbuterol) 1.25 mg Route: Inhalation; ld1 22:01 Follow up: Response: No adverse reaction ll3 19:24 Drug: Rocephin (cefTRIAXone) 1 grams Route: IV; Rate: calculated rate; Site: right ll3 antecubital; 19:53 Follow up: Response: No adverse reaction; IV Status: Completed infusion; IV Intake: [id number] 19:53 Drug: SOLU-Medrol (methylPrednisoLONE) 125 mg Route: IVP; Site: right antecubital; ll3 22:01 Follow up: Response: No adverse reaction ll3 20:03 Drug: AZITHromycin 500 mg Route: IVPB; Infused Over: 1 hrs; Site: right antecubital; ll3 22:01 Follow up: Response: No adverse reaction; IV Status: Completed infusion; IV Intake: ll3 250ml Disposition Summary: 03/23/22 21:03 Discharge Ordered Location: Home pm1 Problem: new pm1 Symptoms: have improved pm1 Condition: Stable pm1 Diagnosis - Pneumonia, unspecified organism pm1 Followup: pm1 - With: Emergency Department - When: As needed - Reason: Worsening of condition Followup: pm1 - With: Private Physician - When: 2 - 3 days - Reason: Recheck today's complaints, Continuance of care, Re-evaluation by your physician Discharge Instructions: - Discharge Summary Sheet pm1 - Community-Acquired Pneumonia, Adult pm1 Forms: - Medication Reconciliation Form pm1 - Thank You Letter pm1 - Antibiotic Education pm1 - Prescription Opioid Use pm1 Prescriptions: - Ventolin HFA 90 mcg/actuation Inhalation HFA aerosol inhaler - inhale 1 puff by INHALATION route every 4-6 hours As needed; 1 Inhaler; pm1 Refills: 0, Product Selection Permitted - Zithromax Z-Miguelangel 250 mg Oral Tablet - take 1 tablet by ORAL route as directed for 5 days Day 1 - take two (2) tablets pm1 one time. Day 2, 3, 4 , 5 take one (1) tablet once daily.; 6 tablet; Refills: 0, Product Selection Permitted - Medrol (Miguelangel) 4 mg Oral Tablets, Dose Pack - take 1 tablet by ORAL route as directed - follow package instructions; 1 pm1 packet; Refills: 0, Product Selection Permitted - Augmentin 875-125 mg Oral Tablet - take 1 tablet by ORAL route every 12 hours for 10 days; 20 tablet; Refills: 0, pm1 Product Selection Permitted Signatures: Dispatcher [employer] EDPito Hansen, OUTPATIENT PHARMACY MANAGER OUTPATIENT PHARMACY MANAGER pm1 Isabel Weber, RN RN ld1 Maria M Melgar, RN RN ll3
[2022-03-23 22:19] VITALS: TEMP 98.2
[2022-03-23 22:22] VITALS: O2SAT 98
[2022-03-23 22:29] VITALS: BP 117/81
--- NOTE | 2022-03-25 17:32 | EKG ---
Test Date: 2022-03-23 Test Time: 18:21:43 Design Eng: MARIA ELENA MEASUREMENT RESULTS: Intervals: Rate: 77 NM: 164 QRSD: 72 QT: 376 QTc: 425 [place]: P: 72 NM: 164 QRS: 58 T: 73 INTERPRETIVE STATEMENTS: Normal sinus rhythm Possible Left atrial enlargement Anteroseptal infarct, age undetermined Abnormal ECG Compared to ECG 07/08/2021 19:46:49 Sinus tachycardia no longer present Myocardial infarct finding still present Electronically Signed On 03-25-22 17:29:32 CDT by Audi Dang
== END 2022-03-23 22:03 | disposition home or self-care (01) ==
LOC: ER 17:21
DX: J18.9 Pneumonia, unspecified organism (principal); Z20.822 Contact with and (suspected) exposure to COVID-19; J44.9 Chronic obstructive pulmonary disease, unspecified; Z88.2 Allergy status to sulfonamides; Z88.5 Allergy status to narcotic agent
CPT/HCPCS: 96365; 96367; 93005; 85025; 80048; 36415; 83735; 85610; 80076; 84484; 83880; 87804 ×2; 71045; 96375; 99285; U0003; J0456; J7050; J7040; J2930

== ENCOUNTER 2022-04-07 00:04 | Inpatient (IN) | payer MEDICARE, OTHER ==
[2022-04-07 00:42] LABS: Absolute Lymphocytes (CBC) 1.1 K/uL (0.7-4.9); Hematocrit 37.2 % (36.0-45.0); Lymphocytes % 10.8 % (15.3-44.8); MCV 87.1 fL (80-100); MPV 7.6 fL (7.6-11.3); RBC Red Blood Cell Count 4.27 M/uL (3.86-4.86)
[2022-04-07 00:44] LABS: Protime INR 1.11
[2022-04-07 01:01] LABS: Albumin 3.4 g/dL (3.4-5.0); Bilirubin Direct 0.3 mg/dL (0-0.2); Bilirubin Total 1.3 mg/dL (0.2-1.0); Magnesium 2.3 mg/dL (1.8-2.4); Potassium 4.2 mmol/L (3.5-5.1); Protein, Total 7.8 g/dL (6.4-8.2); Troponin High Sensitivity 4.8 pg/mL (<58.9)
[2022-04-07] MEDS ORDERED: NA CHLORIDE 0.9% 1,000 ML ONE (01:09)
[2022-04-07] MEDS ORDERED: NA CHLORIDE 0.9% 500 ML ONE (01:09)
[2022-04-07 01:26] LABS: Urine Blood Negative (Negative); Urine Glucose Negative (Negative); Urine Protein Negative (Negative); Urine Specific Gravity 1.015 (1.005-1.030); Urine pH 8.5 (5.0-7.0)
--- NOTE | 2022-04-07 01:51 | ER ---
Nurse's Notes [facility] Name: Licha Nino Age: 76 yrs Sex: Female : 1945 Arrival Date: 04/07/2022 Time: 00:07 Bed 5 Private MD: Diagnosis: Pneumonia, unspecified organism;Fever, unspecified;Acute bronchiolitis due to other specified organisms;Acute upper respiratory infection, unspecified;Coronavirus infection, unspecified;SARS-associated coronavirus as the cause of diseases classified elsewhere;Pneumonia due to SARS-associated coronavirus Presentation: 04/07 00:15 Chief complaint: EMS states: she is complaining of body aches and a fever. she said she kd3 just got over pneumonia and took her last bit of medications for it but since, she's just gotten worse. pt had 102.1 fever on site and 107 heart rate. Coronavirus screen: Vaccine status: Patient reports being unvaccinated. Ebola Screen: No symptoms or risks identified at this time. Initial Sepsis Screen: Does the patient meet any 2 criteria? Temp <36.0*C (96.8*F)) or > 38.3*C (100.9*F). HR > 90 bpm. Yes Does the patient have a suspected source of infection? Yes: Productive cough/pneumonia. Risk Assessment: Do you want to hurt yourself or someone else? Patient reports no desire to harm self or others. Onset of symptoms was April 07, 2022. 00:15 Method Of Arrival: EMS: [facility] kd3 00:15 Acuity: AZAM 3 kd3 Triage Assessment: 00:21 General: Appears in no apparent distress. Behavior is calm, cooperative. Pain: kd3 Complains of pain in generalized body aches. Neuro: Level of Consciousness is awake, alert, obeys commands, Oriented to person, place, time, situation. Historical: - Allergies: 00:21 Codeine; kd3 00:21 Demerol; kd3 00:21 Sulfa (Sulfonamide Antibiotics); kd3 - PMHx: 00:21 COPD; HYPOGLYCEMIA; Myocardial infarction; kd3 - Immunization history:: Adult Immunizations up to date. - Social history:: Smoking status: unknown. - Family history:: not pertinent. Screenin:27 Abuse screen: Denies threats or abuse. Denies injuries from another. Nutritional kd3 screening: No deficits noted. Tuberculosis screening: No symptoms or risk factors identified. Fall Risk IV access (20 points). Assessment: 00:29 Reassessment: see triage. kd3 02:41 General: Appears in no apparent distress. Behavior is calm, cooperative. Neuro: Level kd3 of Consciousness is awake, alert, obeys commands, Oriented to person, place, time, situation. Respiratory: Airway is patent Trachea midline Respiratory effort is even, unlabored. 04:34 Reassessment: No changes from previously documented assessment. Patient and/or family kd3 updated on plan of care and expected duration. Pain level reassessed. Patient is alert, oriented x 3, equal unlabored respirations, skin warm/dry/pink. Patient denies pain at this time. Vital Signs: 00:15 Temp 99; Weight 41.19 kg; Height 5 ft. 9 in. (175.26 cm); kd3 00:27 BP 122 / 72; Pulse 102; Resp 12; Pulse Ox 97% on R/A; kd3 02:41 BP 121 / 67; Pulse 94; Resp 13; Pulse Ox 100% on R/A; kd3 04:33 BP 136 / 73; Pulse 103; Resp 17; Pulse Ox 97% on R/A; kd3 06:05 BP 101 / 57; Pulse 76; Resp 16; Pulse Ox 100% on R/A; kd3 00:15 Body Mass Index 13.41 (41.19 kg, 175.26 cm) kd3 ED Course: 00:07 Patient arrived in ED. mw2 00:15 Singh Farmer MD is Attending Physician. siobhan 00:15 Edwina Redman, KALYANI is Primary Nurse. kd3 00:21 Triage completed. kd3 00:21 Arm band placed on right wrist. kd3 00:27 Patient has correct armband on for positive identification. kd3 00:27 No provider procedures requiring assistance completed. Inserted saline lock: 20 gauge kd3 in right antecubital area, using aseptic technique. Blood collected. 00:43 XRAY Chest (1 view) In Process Unspecified. EDMS 01:00 SARS-COV-2 RT PCR (Document "Date of Onset" if Symptomatic) Sent. kd3 01:49 Elmer Lyon MD is Hospitalizing Provider. siobhan 05:03 Notified ED physician of a critical lab result(s). d-dimer 1015 Notified the tw5 Hospitalist of a critical lab result(s), d-dimer 1015. 06:45 Patient admitted, IV remains in place. kd3 Administered Medications: 02:38 Drug: SOLU-Medrol (methylPrednisoLONE) 100 mg Route: IVP; Site: right antecubital; kd3 02:58 Follow up: Response: No adverse reaction kd3 02:38 Drug: Meropenem 1 grams Route: IV; Rate: per protocol; Site: right antecubital; kd3 02:58 Follow up: Response: No adverse reaction; IV Status: Completed infusion kd3 02:58 Drug: NS 0.9% 500 ml Route: IV; Rate: bolus; Site: right antecubital; kd3 02:58 Follow up: Response: No adverse reaction; IV Status: Completed infusion kd3 02:58 Drug: NS 0.9% 1000 ml Route: IV; Rate: 125 ml/hr; Site: right antecubital; kd3 06:46 Follow up: Response: No adverse reaction; IV Status: Completed infusion kd3 02:58 Drug: Zithromax (azithromycin) 500 mg Route: IVPB; Infused Over: 1 hrs; Site: right kd3 antecubital; 06:46 Follow up: Response: No adverse reaction; IV Status: Completed infusion kd3 Medication: 00:29 VIS not applicable for this client. kd3 Outcome: 01:50 Decision to Hospitalize by Provider. siobhan 06:45 Admitted to ER Hold. Please see [facility] for further documentation. kd3 06:45 Condition: stable 06:45 Condition: stable 06:45 Discharge instructions given to patient, Instructed on follow up and referral plans. the need for admit, Demonstrated understanding of instructions. 17:00 Patient left the ED. aa5 Signatures: Dispatcher [employer] EDMS Singh Farmer MD MD cha Calderon, Audri, RN RN aa5 Berna Daniels Tiffany 5 Edwina Redman RN RN kd3
--- NOTE | 2022-04-07 01:51 | EDPHYS ---
Physician Documentation [facility] Name: Licha Nino Age: 76 yrs Sex: Female : 1945 Arrival Date: 04/07/2022 Time: 00:07 Bed 5 Private MD: ED Physician Singh Farmer HPI: 04/07 01:40 This 76 yrs old Female presents to ER via EMS with unknown complaint. siobhan 01:40 The patient has shortness of breath at rest, with light activity. Onset: The siobhan symptoms/episode began/occurred 2 day(s) ago. Duration: The symptoms are continuous, and are steadily getting worse. Duration: The symptoms. The patient's shortness of breath is aggravated by coughing, is alleviated by rest, sitting up, application of supplemental oxygen. The patient or guardian reports cough, described as mild, difficulty breathing, flu symptoms, arthralgias, low-grade fever, myalgias. Modifying factors: The symptoms are alleviated by remaining still, the symptoms are aggravated by cold environment, lying flat, talking. Associated signs and symptoms: Pertinent positives: non-productive cough, dizziness, fever, numbness in extremities. Severity of symptoms: At their worst the symptoms were moderate in the emergency department the symptoms have resolved. Historical: - Allergies: 00:21 Codeine; kd3 00:21 Demerol; kd3 00:21 Sulfa (Sulfonamide Antibiotics); kd3 - PMHx: 00:21 COPD; HYPOGLYCEMIA; Myocardial infarction; kd3 - Immunization history:: Adult Immunizations up to date. - Social history:: Smoking status: unknown. - Family history:: not pertinent. ROS: 01:40 Eyes: Negative for injury, pain, redness, and discharge, ENT: Negative for injury, siobhan pain, and discharge, Neck: Negative for injury, pain, and swelling, Abdomen/GI: Negative for abdominal pain, nausea, vomiting, diarrhea, and constipation, Back: Negative for injury and pain, : Negative for injury, bleeding, discharge, and swelling, MS/Extremity: Negative for injury and deformity, Skin: Negative for injury, rash, and discoloration, Psych: Negative for depression, anxiety, suicide ideation, homicidal ideation, and hallucinations, Allergy/Immunology: Negative for hives, rash, and allergies, Endocrine: Negative for neck swelling, polydipsia, polyuria, polyphagia, and marked weight changes, Hematologic/Lymphatic: Negative for swollen nodes, abnormal bleeding, and unusual bruising. 01:40 Constitutional: Positive for chills, fatigue, fever, malaise, poor PO intake. 01:40 Respiratory: Positive for cough, "sounds productive", dyspnea on exertion, shortness of breath, wheezing, expiratory. Exam: 01:40 Constitutional: This is a well developed, well nourished patient who is awake, alert, siobhan and in no acute distress. Head/Face: Normocephalic, atraumatic. Eyes: Pupils equal round and reactive to light, extra-ocular motions intact. Lids and lashes normal. Conjunctiva and sclera are non-icteric and not injected. Cornea within normal limits. Periorbital areas with no swelling, redness, or edema. ENT: Nares patent. No nasal discharge, no septal abnormalities noted. Tympanic membranes are normal and external auditory canals are clear. Oropharynx with no redness, swelling, or masses, exudates, or evidence of obstruction, uvula midline. Mucous membranes moist. Neck: Trachea midline, no thyromegaly or masses palpated, and no cervical lymphadenopathy. Supple, full range of motion without nuchal rigidity, or vertebral point tenderness. No Meningismus. Chest/axilla: Normal chest wall appearance and motion. Nontender with no deformity. No lesions are appreciated. Abdomen/GI: Soft, non-tender, with normal bowel sounds. No distension or tympany. No guarding or rebound. No evidence of tenderness throughout. Back: No spinal tenderness. No costovertebral tenderness. Full range of motion. Female : Normal external genitalia. Skin: Warm, dry with normal turgor. Normal color with no rashes, no lesions, and no evidence of cellulitis. MS/ Extremity: Pulses equal, no cyanosis. Neurovascular intact. Full, normal range of motion. Neuro: Awake and alert, GCS 15, oriented to person, place, time, and situation. Cranial nerves II-XII grossly intact. Motor strength 5/5 in all extremities. Sensory grossly intact. Cerebellar exam normal. Normal gait. Psych: Awake, alert, with orientation to person, place and time. Behavior, mood, and affect are within normal limits. 01:40 Chest/axilla: Inspection: normal, Palpation: is normal, no acute changes. 01:40 Cardiovascular: Rate: tachycardic, actual rate is 102 bpm, Rhythm: regular, Pulses: Pulses are 4+ in bilateral radial, brachial, femoral, popliteal, posterior tibial and and dorsalis pedis arteries.. Heart sounds: normal, normal S1and S2, no S3 or S4, no murmur, no rub, no gallop, Edema: is not appreciated, JVD: is not appreciated. 01:40 ECG was reviewed by the Attending Physician. 03:07 Musculoskeletal/extremity: DVT Exam: No signs of deep vein thrombosis. no pain, no siobhan swelling, no tenderness, negative Homans' sign noted on exam, no appreciated bluish discoloration, no erythema, no increased warmth. Vital Signs: 00:15 Temp 99; Weight 41.19 kg; Height 5 ft. 9 in. (175.26 cm); kd3 00:27 BP 122 / 72; Pulse 102; Resp 12; Pulse Ox 97% on R/A; kd3 02:41 BP 121 / 67; Pulse 94; Resp 13; Pulse Ox 100% on R/A; kd3 04:33 BP 136 / 73; Pulse 103; Resp 17; Pulse Ox 97% on R/A; kd3 06:05 BP 101 / 57; Pulse 76; Resp 16; Pulse Ox 100% on R/A; kd3 00:15 Body Mass Index 13.41 (41.19 kg, 175.26 cm) kd3 MDM: 00:15 Patient medically screened. siobhan 01:44 Differential diagnosis: Anemia asthma, Bronchitis CHF exacerbation, Chronic Obstructive siobhan Pulmonary Disease bronchitis, flu, URI, pneumonia, pulmonary edema. Antibiotic administration: MERREM AND ZITHROMAX. The patient's Wells Deep Vein Thrombosis Score was calculated as follows: Heart Rate >100 BPM (1.5 Pts) Total Score: 0-2 Pts- Low Risk. Differential Diagnosis: Obstructed Airway Bronchitis Influenza Upper Respiratory Infection Sinusitis Asthma Exacerbation Viral Syndrome Pneumonia. The patient's pulmonary embolism risk score was calculated as follows: the patients heart rate is greater than 100 beats per minute (1.5 Pts) Total Score: 0-2 points. This patient was found to be at low risk for a pulmonary embolism by using the Well's assessment criteria. Immunization status: Pneumococcal vaccine: Influenza vaccine: Data reviewed: vital signs, nurses notes, lab test result(s), EKG, radiologic studies, plain films. Data interpreted: environmental monitoring specialist: rate is 102 beats/min, rhythm is atrial fibrillation. Test interpretation: by ED physician or midlevel provider: ECG, plain radiologic studies. Counseling: I had a detailed discussion with the patient and/or guardian regarding: the historical points, exam findings, and any diagnostic results supporting the discharge/admit diagnosis, lab results, radiology results, the need for further work-up and treatment in the hospital. 04/07 00:18 Order name: Basic Metabolic Panel; Complete Time: [facility] 04/07 00:18 Order name: CBC with Diff; Complete Time: [facility] 04/07 00:18 Order name: LFT's; Complete Time: [facility] 04/07 00:18 Order name: Magnesium; Complete Time: [facility] 04/07 00:18 Order name: NT PRO-BNP; Complete Time: [facility] 04/07 00:18 Order name: PT-INR; Complete Time: [facility] 04/07 00:18 Order name: Troponin HS; Complete Time: [facility] 04/07 00:18 Order name: Lactate; Complete Time: [facility] 04/07 00:18 Order name: Blood Culture Adult (2) [facility] 04/07 00:18 Order name: SARS-COV-2 RT PCR (Document "Date of Onset" if Symptomatic); Complete Time: siobhan 04/07 00:18 Order name: Flu; Complete Time: [facility] 04/07 00:18 Order name: Urine Culture [facility] 04/07 01:26 Order name: Urine Dipstick-Ancillary; Complete Time: [facility]AL 04/07 02:48 Order name: CRP; Complete Time: 05:03 la1 04/07 00:18 Order name: XRAY Chest (1 view) [facility] 04/07 00:18 Order name: EKG; Complete Time: 00:19 [facility] 04/07 00:18 Order name: Cardiac monitoring; Complete Time: 00:29 [facility] 04/07 00:18 Order name: EKG - Nurse/Tech; Complete Time: 00:50 [facility] 04/07 00:18 Order name: IV Saline Lock; Complete Time: 00:29 siobhan 04/07 03:07 Order name: D-Dimer [facility] 04/07 05:04 Order name: D-Dimer; Complete Time: 05:07 [facility]AL 04/07 05:06 Order name: US Extremity Venous W Compression Temo [facility] 04/07 05:06 Order name: CT Chest For PE Angio [facility] 04/07 10:36 Order name: CT; Complete Time: 16:05 [facility] 04/07 14:49 Order name: US EDAL 04/07 00:18 Order name: Labs collected and sent; Complete Time: 00:50 [facility] 04/07 00:18 Order name: O2 Per Protocol; Complete Time: 00:29 [facility] 04/07 00:18 Order name: O2 Sat Monitoring; Complete Time: 00:29 [facility] 04/07 00:18 Order name: Urine Dipstick-Ancillary (obtain specimen); Complete Time: 01:30 [facility] 04/07 01:55 Order name: Misc. Order: BEBTELOVIMAB; Complete Time: 04:31 [facility] EC:40 Rate is 102 beats/min. Rhythm is regular. QRS [place] is Normal. [place] interval is normal. [facility] QRS interval is normal. QT interval is normal. No Q waves. T waves are Normal. Clinical impression: NSR w/ Non-specific ST/T Changes and No evidence of ischemia. Interpreted by me. Reviewed by me. Administered Medications: 02:38 Drug: SOLU-Medrol (methylPrednisoLONE) 100 mg Route: IVP; Site: right antecubital; kd3 02:58 Follow up: Response: No adverse reaction kd3 02:38 Drug: Meropenem 1 grams Route: IV; Rate: per protocol; Site: right antecubital; kd3 02:58 Follow up: Response: No adverse reaction; IV Status: Completed infusion kd3 02:58 Drug: NS 0.9% 500 ml Route: IV; Rate: bolus; Site: right antecubital; kd3 02:58 Follow up: Response: No adverse reaction; IV Status: Completed infusion kd3 02:58 Drug: NS 0.9% 1000 ml Route: IV; Rate: 125 ml/hr; Site: right antecubital; kd3 06:46 Follow up: Response: No adverse reaction; IV Status: Completed infusion kd3 02:58 Drug: Zithromax (azithromycin) 500 mg Route: IVPB; Infused Over: 1 hrs; Site: right kd3 antecubital; 06:46 Follow up: Response: No adverse reaction; IV Status: Completed infusion kd3 Disposition Summary: 04/07/22 01:50 Hospitalization Ordered Hospitalization Status: Inpatient Admission siobhan Provider: Elmer Lyon cha Condition: Fair siobhan Problem: new siobhan Symptoms: have improved siobhan Bed/Room Type: Standard siobhan Location: Telemetry/MedSurg (Inpatient)(04/07/22 15:40) em1 Room Assignment: 222(04/07/22 15:40) em1 Diagnosis - Pneumonia, unspecified organism siobhan - Fever, unspecified siobhan - Acute bronchiolitis due to other specified organisms siobhan - Acute upper respiratory infection, unspecified siobhan - Coronavirus infection, unspecified siobhan - SARS-associated coronavirus as the cause of diseases classified elsewhere siobhan - Pneumonia due to SARS-associated coronavirus siobhan Forms: - Medication Reconciliation Form siobhan - SBAR form siobhan Signatures: Dispatcher [employer] EDMS Singh Farmer MD MD cha Martinez, Christiano em1 Wilton England, WIRE WRAPPER MACHINE OPERATOR-C WIRE WRAPPER MACHINE OPERATOR-[facility] Evita Zheng RN RN Edwina Cassidy RN RN kd3 Corrections: (The following items were deleted from the chart) 01:53 01:50 Telemetry/MedSurg (Inpatient) siobhan cg 01:53 01:50 siobhan cg 15:40 01:53 [facility] ER HOLD cg em1 15:40 01:53 ERHOLD- cg em1
[2022-04-07] MEDS ORDERED: METHYLPREDNISOLONE 125 MG INJ ONE (02:32)
[2022-04-07] MEDS ORDERED: NA CHLORIDE 0.9% 250 ML ONE (02:32)
[2022-04-07] MEDS ORDERED: AZITHROMYCIN 500 MG INJ IVPB ONE (02:32)
[2022-04-07] MEDS ORDERED: Meropenem 1000 MG/VIAL IV ONE (02:32)
[2022-04-07] MEDS ORDERED: BEBTELOVIMAB 175 MG/2 ML VIAL IV ONE ×2 (02:32→04:20)
[2022-04-07] MEDS ORDERED: NA CHLORIDE 0.9% 100 ML ONE (02:35)
--- NOTE | 2022-04-07 03:00 | P.HP ---
Certification for Inpatient Patient admitted to: Observation With expected LOS: <2 Midnights Patient will require the following post-hospital care: None Practitioner: I am a practitioner with admitting privileges, knowledge of patient current condition, hospital course, and medical plan of care. Services: Services provided to patient in accordance with Admission requirements found in Title 42 Section 412.3 of the Code of Federal Regulations <Demariojosé miguelWilton Wooten - Last Filed: 04/07/22 02:55> Patient History Date of Service: 04/07/22 Reason for admission: COVID-19 pneumonia History of Present Illness: 76-year-old female with history of COPD, CAD, hypothyroidism was brought into the emergency department by EMS for fever, myalgias. She was seen here at the hospital on 03/23/2022 and diagnosed with pneumonia she was discharged with a prescription for a Z-Miguelangel as well as 10 days of Augmentin which she completed a few days ago. She noticed over the course of the last day or so she has been feeling very bad having lots of aches and myalgias as well as fevers. EMS measured temperature of 102.1 and heart rate of 107 patient did have some mild shortness of breath therefore met sepsis criteria, code sepsis was called and work-up was completed patient's labs were significant for mild hyponatremia, she tested positive for COVID her chest x-ray demonstrated "findings suggest traction bronchiectasis with bronchial thickening involving bilateral upper lobes greater left than right, nodularity/small focal areas of airspace opacity right upper lobe zone correspond most likely to mucous plugging/bronchial thickening related to atypical mycobacterial infection". Patient was given bebtelovimab monoclonal antibodies in the emergency department ED provider wishes to admit for further evaluation and management of COVID-19/possible mycobacterial infection. - Past Medical/Surgical History Diabetic: No -: COPD -: Coronary artery disease -: GERD -: Hypothyroidism -: History of breast cancer -: Breast cancer removal -: Partial hysterectomy Psychosocial/ Personal History: She lives by herself. She is single. She has 1 child. - Family History Family History: Reviewed- Non-Contributory - Social History Smoking Status: Former smoker Alcohol use: No CD- Drugs: No Caffeine use: Yes Place of Residence: Home <Wilton England - Last Filed: 04/07/22 02:55> Date of Service: 04/07/22 <Elmer Lyon - Last Filed: 04/07/22 15:54> Allergies codeine Allergy (Verified 10/30/16 18:33) go crazy meperidine [From Demerol] Allergy (Verified 10/30/16 18:33) go crazy Sulfa (Sulfonamide Antibiotics) Allergy (Verified 10/30/16 18:33) Hives Home Medications: Albuterol Sulfate [Albuterol Sulfate 0.083% Neb Soln] 2.5 mg IH Q6HP PRN 10/31/16 Aspirin [Aspir-Low] 81 mg PO DAILY 10/31/16 Biotin 5,000 mcg PO DAILY 10/31/16 Calcium Carbonate [Calcium] 500 mg PO DAILY 10/31/16 Cholecalciferol (Vitamin D3) [Vitamin D3] 2,000 iu PO DAILY 10/31/16 Ferrous Sulfate 65 mg PO DAILY 10/31/16 Levothyroxine [Synthroid*] 137 mcg PO DAILY 10/31/16 Loratadine [Allergy Relief] 10 mg PO PRN PRN 10/31/16 [place]-3 Fatty Acids [Fish Oil] 300 mg PO DAILY 10/31/16 carvediloL [Coreg*] 3.125 mg PO BID #60 tab 10/31/16 Pantoprazole [Protonix Tab*] 20 mg PO DAILYAC 01/05/17 Azithromycin Tab [Zithromax*] 250 mg PO DAILY #7 tab 01/10/17 Review of Systems 10-point ROS is otherwise unremarkable General: Fever, Chills, Sweats, Weakness, Malaise, As per HPI Respiratory: Cough, Shortness of Breath <Wilton England - Last Filed: 04/07/22 02:55> Physical Examination - Physical Exam General: Alert, In no apparent distress, Oriented x3 HEENT: Atraumatic, PERRLA, Mucous membr. moist/pink, EOMI, Sclerae nonicteric Neck: Supple, 2+ carotid pulse no bruit, No LAD, Without JVD or thyroid abnorm ality Respiratory: Clear to auscultation bilaterally, Normal air movement Cardiovascular: No edema, Regular rate/rhythm, Normal S1 S2 Capillary refill: <2 Seconds Gastrointestinal: Normal bowel sounds, No tenderness Musculoskeletal: No tenderness Integumentary: No rashes Neurological: Normal speech, Normal strength at 5/5 x4 extr, Normal tone, Normal affect - Studies Laboratory Data (last 24 hrs) 04/07/22 00:28: PT 12.2, INR 1.11 04/07/22 00:28: WBC 10.5, Hgb 12.1, Hct 37.2, Plt Count 283 04/07/22 00:28: Sodium 132 L, Potassium 4.2, BUN 12, Creatinine 0.90, Glucose 102, Magnesium 2.3, Total Bilirubin 1.3 H, AST 16, ALT 20, Alkaline Phosphatase 123 H Microbiology Data (last 24 hrs): 04/07/22 00:39 Nasopharnyx Influenza Type A Antigen Screen - Final 04/07/22 00:39 Nasopharnyx Influenza Type B Antigen Screen - Final <Wilton England - Last Filed: 04/07/22 02:55> - Studies Laboratory Data (last 24 hrs) 04/07/22 00:28: PT 12.2, INR 1.11 04/07/22 00:28: WBC 10.5, Hgb 12.1, Hct 37.2, Plt Count 283 04/07/22 00:28: Sodium 132 L, Potassium 4.2, BUN 12, Creatinine 0.90, Glucose 102, Magnesium 2.3, Total Bilirubin 1.3 H, AST 16, ALT 20, Alkaline Phosphatase 123 H Microbiology Data (last 24 hrs): 04/07/22 00:39 Nasopharnyx Influenza Type A Antigen Screen - Final 04/07/22 00:39 Nasopharnyx Influenza Type B Antigen Screen - Final <Elmer Lyon - Last Filed: 04/07/22 15:54> Assessment and Plan - Plan Assessment: Sepsis secondary to COVID-19 versus possible mycobacterial/atypical pneumonia COPD CAD Hypothyroidism Plan: Sepsis secondary to COVID-19 versus possible mycobacterial/atypical pneumonia: Pulmonology to be consulted, patient on room air at this time not in significant distress she recently completed a course of antibiotics including Zithromax and Augmentin for 10 days for suspected pneumonia at that time she was COVID- negative. She had new onset of myalgias, fever and shortness of breath that started yesterday. She does have longstanding history of COPD and was a former smoker about 30 years ago. Patient further input from pulmonology, have initiated antibiotic therapy with Levaquin. COPD: Continue as above no extra wheezing noted at this time continue home medications provide as needed nebulizer treatments. CAD: Continue aspirin, patient reports having a heart catheterization many years ago not needing any intervention. Hypothyroidism: Continue levothyroxine 112 DVT PPX: lovenox Code status: full Discharge Plan: Home Plan to discharge in: 24 Hours - Advance Directives Does patient have a Living Will: No Does patient have a Durable POA for Healthcare: No - Code Status/Comfort Care Code Status Assessed: Yes (Full code) Critical Care: No Time Spent Managing Pts Care (In Minutes): 70 <Wilton England - Last Filed: 04/07/22 02:55> Physician Review Additional Text: I have personally seen and evaluated Ms. Licha Nino. I reviewed the notes and assessments performed by Wilton England NP. I independently performed my own history and physical examination. I agree with the assessment and plan as outlined in his note. I concur with his documentation of Ms. Nino. DIAGNOSES: # Possible Viral Sepsis secondary to COVID-19 Pneumonia +/- Atypical Mycobacterial Pneumonia # Chronic Obstructive Pulmonary Disease # Coronary Artery Disease # Hypothyroidism # Gastroesophageal Reflux Disease # History of Breast Cancer s/p Breast Cancer Removal <Elmer Lyon - Last Filed: 04/07/22 15:54>
[2022-04-07] MEDS ORDERED: ALBUTEROL 2.5 MG/3 ML NEB SOL NEB PRN (06:26)
[2022-04-07] MEDS ORDERED: ACETAMINOPHEN 500 MG TAB PO PRN (06:26)
[2022-04-07] MEDS ORDERED: IPRATROPIUM BROM 0.5MG/2.5ML NEB PRN (06:26)
[2022-04-07] MEDS ORDERED: BENZONATATE 100 MG CAP PO PRN (06:26)
[2022-04-07] MEDS ORDERED: ONDANSETRON 4 MG/2 ML VIAL IV PRN (06:26)
[2022-04-07 06:43] VITALS: BMI 13.3
[2022-04-07] MEDS ORDERED: Levofloxacin 750mg IV 750 MG/150 ML BAG IV ONE (07:47)
[2022-04-07] MEDS ORDERED: ASPIRIN EC 81 MG TAB PO ONE (07:47)
[2022-04-07] MEDS ORDERED: ENOXAPARIN 40 MG/0.4 ML SQ ONE (07:47)
[2022-04-07] MEDS ORDERED: Levofloxacin500mg IV 500 MG/100 ML BAG IV SCH (08:00)
[2022-04-07] MEDS: LEVOTHYROXINE SOD 0.112 MG TAB PO SCH (08:20)
[2022-04-07] MEDS: ASPIRIN EC 81 MG TAB PO SCH (09:40)
[2022-04-07] MEDS: ENOXAPARIN 40 MG/0.4 ML SQ SCH (09:40)
[2022-04-07] MEDS: Levofloxacin 750mg IV 750 MG/150 ML BAG IV SCH (09:40)
--- NOTE | 2022-04-07 10:36 | RAD REPORT ---
EXAM DESCRIPTION: CT chest angiography with intravenous contrast CLINICAL HISTORY: 76 years Female CP/DYSPNEA. TECHNIQUE: Following the administration of intravenous contrast, multiple high-resolution axial imag es of the chest were performed followed by sagittal and coronal reconstructed images. Coronal oblique MIP images were also performed. The CT study is performed according to ALARA (as low as reasonably a chievable) or ALARA/IMAGE GENTLY, with automatic adjustment of mA and/or kV according to patient size . Performed on: 04/07/2022 at 5:46 AM COMPARISON: Chest angiography performed on 05/14/2019 FINDINGS: There is satisfactory visualization and contrast opacification of pulmonary arteries. No definite intra-arterial filling defects are identified to suggest acute or chronic pulmonary embolis m. The thoracic aorta is normal in caliber and contour without evidence of aneurysm or dissection. The lungs are hyperinflated. There is chronic pleural parenchymal fibrosis in the lung apices. There is increasing pleural-parenchymal fibrosis and pleural thickening bilaterally. There are bronchiectat ic changes best appreciated in the anterior upper lobes. There are occasional tree in bud opacities w hich are likely related to chronic bronchiolitis. There are multiple bilateral pulmonary parenchymal nodules. The largest is located in the right lower lobe and measures approximately 8 mm (series 401, image 60). This appears increased in size when compared to the prior study there is an approximately 4 mm right lower lobe nodule (series 401, image 90) similar when compared to the prior study. There i s an approximately 5 mm stable subpleural nodule lateral aspect of the left lower lobe (series 401, i mage 73) and a grossly stable 6 mm left lower lobe parenchymal nodule (series 401, image 73). There a re no pleural effusions. There is no pneumothorax. The central airways are patent and are grossly unr emarkable. There is a calcified right lower lobe granuloma posteriorly. Occasional pleural calcificat ions are noted in the posterior left hemithorax. The heart is normal in size. There is no pericardial effusion. There is no reflux of contrast into th e hepatic veins to suggest right heart strain.The RV/LV ratio is within normal limits. There is no evidence of hilar, mediastinal or axillary lymphadenopathy. No acute osseous abnormality is identified. The visualized upper abdominal structures are unremarkable. IMPRESSION: 1. No evidence of acute or chronic pulmonary embolism, aortic aneurysm or aortic disse ction. 2. Hyperinflation of the lungs with increasing pleural-parenchymal fibrosis and pleural thickening bilaterally. 3. Scattered bronchiectatic changes best appreciated in the anterior upper lobes. 4. Occasional scattered tree in bud opacities which are likely related to chronic bronchiolitis. 5. Multiple bilateral pulmonary parenchymal nodules. The largest is located in the right lower lobe and measures approximately 8 mm. This appears minimally increased in size when compared to the prior study. Although these could reflect changes related to prior granulomatous disease, a neoplastic pro cess is not entirely excluded. Consider follow-up imaging as clinically indicated. 6. Evidence of prior granulomatous disease. There are pleural calcifications possibly due to asbest os related pleural disease. Electronically signed by: Digna Pinon DO 04/07/2022 6:41 AM CDT Due to temporary technical issues with the PACS/Fluency reporting system, reports are being signed by the in house radiologists without review as a courtesy to insure prompt reporting. The interpreting radiologist is fully responsible for the content of the report.
--- NOTE | 2022-04-07 11:26 | P.CNS ---
Date of Consult: 04/07/22 Chief Complaint: COVID-19 pneumonia History of Present Illness: The patient is as 76-year-old female with a past medical history of tuberculosis which she states was first diagnosed in the early however treated in 1985, emphysema, and breast cancer who presented to the ER secondary to sore throat, dyspnea on exertion, weakness/fatigue, cough, and general malaise. Patient states that she has not vaccinated for COVID-19 and does not wish to be. She tested positive at our facility, states that this is her third time getting COVID-19. She was recently hospitalized at this facility on 03/23/2020 and diagnosed with pneumonia and discharged home on a Z-Miguelangel and 10 days of Augmentin which she completed a few days ago. She also reports fever/chills, on admission T-max was 102.1. Chest x-ray demonstrated findings consistent with possible Mycobacterium infection. CT chest showed signs consistent with prior granulomatous disease, hyperinflation of the lungs with parenchymal fibrosis, and multiple bilateral pulmonary parenchymal nodules. Pending labs and, sputum AFB, blood cultures, and urine cultures. Patient currently aerating well on room air. She denies nausea/vomiting/diarrhea/chest pain. Pertinent positives listed above. Infectious disease has been consulted for further management. She has been empirically placed on Levaquin. Allergies codeine Allergy (Verified 10/30/16 18:33) go crazy meperidine [From Demerol] Allergy (Verified 10/30/16 18:33) go crazy Sulfa (Sulfonamide Antibiotics) Allergy (Verified 10/30/16 18:33) Hives Home Medications: Albuterol Sulfate [Albuterol Sulfate 0.083% Neb Soln] 2.5 mg IH Q6HP PRN 10/31/16 Aspirin [Aspir-Low] 81 mg PO DAILY 10/31/16 Biotin 5,000 mcg PO DAILY 10/31/16 Calcium Carbonate [Calcium] 500 mg PO DAILY 10/31/16 Cholecalciferol (Vitamin D3) [Vitamin D3] 2,000 iu PO DAILY 10/31/16 Ferrous Sulfate 65 mg PO DAILY 10/31/16 Levothyroxine [Synthroid*] 137 mcg PO DAILY 10/31/16 Loratadine [Allergy Relief] 10 mg PO PRN PRN 10/31/16 [place]-3 Fatty Acids [Fish Oil] 300 mg PO DAILY 10/31/16 carvediloL [Coreg*] 3.125 mg PO BID #60 tab 10/31/16 Pantoprazole [Protonix Tab*] 20 mg PO DAILYAC 01/05/17 Azithromycin Tab [Zithromax*] 250 mg PO DAILY #7 tab 01/10/17 - Past Medical/Surgical History Diabetic: No -: COPD -: Coronary artery disease -: GERD -: Hypothyroidism -: History of breast cancer -: Breast cancer removal -: Partial hysterectomy Psychosocial/ Personal History: She lives by herself. She is single. She has 1 child. - Social History Alcohol use: No CD- Drugs: No Caffeine use: Yes Place of Residence: Home Review of Systems 10-point ROS is otherwise unremarkable Physical Examination Temp Pulse Resp BP Pulse Ox 98.3 F 72 16 103/58 L 98 04/07/22 07:50 04/07/22 07:50 04/07/22 07:50 04/07/22 07:50 04/07/22 07:50 General: Alert, In no apparent distress, Cachectic HEENT: Other (Fluid levels demonstrated behind tympanic membranes bilaterally, bilateral boggy erythematous nasal turbinates) Neck: Other (Postnasal drip) Respiratory: Clear to auscultation bilaterally, Normal air movement Cardiovascular: No edema, Regular rate/rhythm, Normal S1 S2 Gastrointestinal: Soft and benign, Non-distended Musculoskeletal: No clubbing, No swelling, No contractures Integumentary: No rashes, No breakdown, No significant lesion Neurological: Normal speech, Cranial nerves 3-12 intact Lymphatics: No axilla or inguinal lymphadenopathy Laboratory Data (last 24 hrs) 04/07/22 00:28: PT 12.2, INR 1.11 04/07/22 00:28: WBC 10.5, Hgb 12.1, Hct 37.2, Plt Count 283 04/07/22 00:28: Sodium 132 L, Potassium 4.2, BUN 12, Creatinine 0.90, Glucose 102, Magnesium 2.3, Total Bilirubin 1.3 H, AST 16, ALT 20, Alkaline Phosphatase 123 H Conclusions/Impression: Antibiotics: Levaquin: 78current Assessment/plan Acute COVID-19 infection Patient aerating well on room air Continue ipratropium bromide and albuterol nebulized treatments -azelastine nasal spray ordered for head congestion/ear pain Pneumonia versus COPD exacerbation -Chest x-ray findings consistent with possible atypical Mycobacterium infection. CT chest showed hyperinflation of lungs, parenchymal fibrosis, and multiple bilateral pulmonary parenchymal nodules. 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 Quantiferon TB Gold pending Sputum AFB pending Blood cultures pending -Patient has a history of tuberculosis which was first diagnosed in the early , patient states that she was treated and cleared in 1995. -Recommend continuing Levaquin at this time Plan of care discussed with Dr. Macedo Thank you for consultation
[2022-04-07] MEDS: AZELASTINE NASAL SPRAY 30 ML NAS SCH ×2 (12:30→21:04)
--- NOTE | 2022-04-07 14:38 | RAD REPORT ---
EXAM DESCRIPTION: X-ray abdomen 1 view CLINICAL HISTORY: 4 years Female ABD PAIN TECHNIQUE: 1 x-ray view of the abdomen was performed on 04/07/2022 at 1:21 AM. COMPARISON: None. FINDINGS: The bowel gas pattern is nonspecific and nonobstructive. The stomach is moderately dist ended with air. No pathologic abdominal or pelvic calcifications are identified. No abnormal air collections are identified. No focal soft tissue abnormalities are seen. No acute osseous abnormalities are identified. IMPRESSION: Nonspecific nonobstructive bowel gas pattern. The stomach is moderately distended with a ir. Electronically signed by: Digna Pinon DO 04/07/2022 1:40 AM CDT Due to temporary technical issues with the PACS/Fluency reporting system, reports are being signed by the in house radiologists without review as a courtesy to insure prompt reporting. The interpreting radiologist is fully responsible for the content of the report.
--- NOTE | 2022-04-07 14:48 | RAD REPORT ---
EXAM DESCRIPTION: Ultrasound Lower Extremity Venous Doppler COMPARISON: None. CLINICAL HISTORY: [facility] MAIN PAIN TECHNIQUE: Multiple grayscale, color, and spectral Doppler images of the bilateral lower extremity v eins were obtained. FINDINGS: Right: The common femoral, greater saphenous, superficial femoral, popliteal, posterior tibial, and peroneal veins demonstrate normal flow, augmentation, and compressibility. Left: The common femoral, greater saphenous, superficial femoral, popliteal, posterior tibial, and peroneal veins demonstrate normal flow, augmentation, and compressibility. IMPRESSION: No evidence of deep vein thrombosis. Electronically signed by: Gregg Jordan MD 04/07/2022 5:47 AM CDT Due to temporary technical issues with the PACS/Fluency reporting system, reports are being signed by the in house radiologists without review as a courtesy to insure prompt reporting. The interpreting radiologist is fully responsible for the content of the report.
[2022-04-08] MEDS: LEVOTHYROXINE SOD 0.112 MG TAB PO SCH (05:38)
[2022-04-08 06:25] LABS: Absolute Lymphocytes (CBC) 2.4 K/uL (0.7-4.9); Hematocrit 34.8 % (36.0-45.0); Lymphocytes % 18.9 % (15.3-44.8); MCV 86.6 fL (80-100); MPV 7.7 fL (7.6-11.3); RBC Red Blood Cell Count 4.03 M/uL (3.86-4.86)
[2022-04-08 06:53] LABS: Albumin 3.3 g/dL (3.4-5.0); Bilirubin Total 0.6 mg/dL (0.2-1.0); Magnesium 2.5 mg/dL (1.8-2.4); Potassium 3.9 mmol/L (3.5-5.1); Protein, Total 7.6 g/dL (6.4-8.2)
[2022-04-08] MEDS: AZELASTINE NASAL SPRAY 30 ML NAS SCH ×2 (09:00→22:08)
[2022-04-08] MEDS: ASPIRIN EC 81 MG TAB PO SCH (09:16)
[2022-04-08] MEDS: ENOXAPARIN 40 MG/0.4 ML SQ SCH (09:16)
--- NOTE | 2022-04-08 14:56 | P.PN ---
Subjective Date of Service: 04/08/22 Chief Complaint: COVID-19 pneumonia Subjective: No new changes, Tolerating diet, Improving, Doing well Review of Systems General: Unremarkable Eyes: Unremarkable ENT: Unremarkable Respiratory: Cough, Shortness of Breath Cardiovascular: Unremarkable Gastrointestinal: Unremarkable Genitourinary: Unremarkable Musculoskeletal: Unremarkable Integumentary: Unremarkable Neurological: Unremarkable Physical Examination - Vital Signs Temperature: 97.3 F Blood Pressure: 97/53 Pulse: 81 Respirations: 16 Pulse Ox (%): 98 - Physical Exam General: Alert, In no apparent distress, Oriented x3 HEENT: Atraumatic, Mucous membr. moist/pink, EOMI Neck: Supple, Without JVD or thyroid abnormality Respiratory: Diminished, Other (coarse breath sounds) Cardiovascular: No edema, Regular rate/rhythm, Normal S1 S2, No gallops, No rubs, No murmurs Gastrointestinal: Normal bowel sounds, Non-distended, No tenderness, No rebound, No guarding Musculoskeletal: No clubbing Integumentary: No rashes Neurological: Normal speech, Normal affect - Studies Microbiology Data (last 24 hrs): 04/07/22 06:26 Sputum Sputum Gram Stain - Final Medications List Reviewed: Yes Assessment And Plan - Plan # Possible Viral Sepsis secondary to COVID-19 Pneumonia +/- Atypical Mycobacterial Pneumonia # History of Tuberculosis s/p treatment (in ) She met SIRS criteria based on HR > 90 bpm and WBC > 12,000 and the suspected source is COVID-19 versus atypical mycobacterial pneumonia. - Sepsis order set was initiated in ED - Initial Lactate was 1.4 - Blood cultures drawn - Broad spectrum antibiotics started: Levofloxacin - In regards to fluids: - 30 mL/kg of IV fluids was not administered given SBP > 90, MAP > 65, lactic acid < 4 - S/P bebtelovimab in the ED - Pulmonary Medicine consulted - recommendations appreciated - Infectious Diseases consulted - recommendations appreciated Quantiferon TB Gold pending Sputum AFB pending # Chronic Obstructive Pulmonary Disease Does not appear to be in acute COPD exacerbation. - Continue home inhalers # Coronary Artery Disease - Continue home aspirin # Hypothyroidism - Continue home levothyroixine # Gastroesophageal Reflux Disease - PRN PPI # History of Breast Cancer s/p Breast Cancer Removal Elmer Lyon MD Discharge Plan: Home Plan to discharge in: Unknown - Code Status/Comfort Care Code Status Assessed: Yes Code Status: Full Code
[2022-04-09 05:08] LABS: Absolute Lymphocytes (CBC) 1.6 K/uL (0.7-4.9); Hematocrit 31.3 % (36.0-45.0); Lymphocytes % 19.9 % (15.3-44.8); MCV 86.3 fL (80-100); MPV 7.8 fL (7.6-11.3); RBC Red Blood Cell Count 3.63 M/uL (3.86-4.86)
[2022-04-09 05:25] LABS: Albumin 2.7 g/dL (3.4-5.0); Bilirubin Total 0.4 mg/dL (0.2-1.0); Magnesium 1.9 mg/dL (1.8-2.4); Potassium 3.8 mmol/L (3.5-5.1); Protein, Total 6.3 g/dL (6.4-8.2)
[2022-04-09] MEDS: LEVOTHYROXINE SOD 0.112 MG TAB PO SCH (06:05)
[2022-04-09] MEDS: Levofloxacin 750mg IV 750 MG/150 ML BAG IV SCH (10:15)
[2022-04-09] MEDS: AZELASTINE NASAL SPRAY 30 ML NAS SCH ×2 (10:18→21:40)
[2022-04-09] MEDS: ENOXAPARIN 40 MG/0.4 ML SQ SCH (10:20)
[2022-04-09] MEDS: ASPIRIN EC 81 MG TAB PO SCH (10:20)
--- NOTE | 2022-04-09 16:32 | P.PN ---
Subjective Date of Service: 04/09/22 Chief Complaint: COVID-19 pneumonia Subjective: No new changes, Ambulating, Improving, Doing well, Other (on room air) Review of Systems General: Unremarkable Eyes: Unremarkable ENT: Unremarkable Respiratory: Cough, SOB with Excertion Cardiovascular: Unremarkable Gastrointestinal: Unremarkable Genitourinary: Unremarkable Musculoskeletal: Unremarkable Integumentary: Unremarkable Neurological: Unremarkable Physical Examination - Vital Signs Temperature: 99.5 F Blood Pressure: 107/59 Pulse: 108 Respirations: 18 Pulse Ox (%): 98 - Physical Exam General: Alert, In no apparent distress, Oriented x3 HEENT: Atraumatic, Mucous membr. moist/pink, EOMI, Sclerae nonicteric Neck: Supple, JVD not distended Respiratory: Diminished, Crackles/rales, Rhonchi/gurgles (faint) Cardiovascular: Regular rate/rhythm, Normal S1 S2, No gallops, No rubs, No murmurs Gastrointestinal: Normal bowel sounds, Soft and benign, No tenderness, No rebound, No guarding Musculoskeletal: No clubbing Integumentary: No rashes Neurological: Normal speech, Normal affect - Studies Microbiology Data (last 24 hrs): 04/07/22 06:26 Sputum Sputum Gram Stain - Final 04/07/22 01:23 Clean Catch Urine Ecru Count - Final >100,000 CFU/ML. 04/07/22 01:23 Clean Catch Urine - Final MIXED [place]. Medications List Reviewed: Yes Assessment And Plan - Plan # Possible Viral Sepsis secondary to COVID-19 Pneumonia +/- Atypical Mycobacterial Pneumonia # History of Tuberculosis s/p treatment (in ) She met SIRS criteria based on HR > 90 bpm and WBC > 12,000 and the suspected source is COVID-19 versus atypical mycobacterial pneumonia. - Sepsis order set was initiated in ED - Initial Lactate was 1.4 - Blood cultures drawn - Broad spectrum antibiotics started: Levofloxacin - In regards to fluids: - 30 mL/kg of IV fluids was not administered given SBP > 90, MAP > 65, lactic acid < 4 - S/P bebtelovimab in the ED - Pulmonary Medicine consulted - recommendations appreciated - Infectious Diseases consulted - recommendations appreciated Quantiferon TB Gold pending Sputum AFB pending - Disposition is pending the above tests - appreciate senior analytic consultant recommendations # Chronic Obstructive Pulmonary Disease Does not appear to be in acute COPD exacerbation. - Continue home inhalers # Coronary Artery Disease - Continue home aspirin # Hypothyroidism - Continue home levothyroixine # Gastroesophageal Reflux Disease - PRN PPI # History of Breast Cancer s/p Breast Cancer Removal Elmer Lyon MD
[2022-04-10 05:11] LABS: Absolute Lymphocytes (CBC) 1.9 K/uL (0.7-4.9); Hematocrit 32.8 % (36.0-45.0); Lymphocytes % 30.9 % (15.3-44.8); MCV 85.5 fL (80-100); MPV 7.6 fL (7.6-11.3); RBC Red Blood Cell Count 3.83 M/uL (3.86-4.86)
[2022-04-10 05:30] LABS: Albumin 2.8 g/dL (3.4-5.0); Bilirubin Total 0.6 mg/dL (0.2-1.0); Magnesium 2.1 mg/dL (1.8-2.4); Potassium 4.1 mmol/L (3.5-5.1); Protein, Total 6.5 g/dL (6.4-8.2)
[2022-04-10] MEDS: PANTOPRAZOLE 40MG TABLET PO SCH (06:00)
[2022-04-10] MEDS: LEVOTHYROXINE SOD 0.112 MG TAB PO SCH (06:00)
[2022-04-10] MEDS: ENOXAPARIN 40 MG/0.4 ML SQ SCH (09:09)
[2022-04-10] MEDS: AZELASTINE NASAL SPRAY 30 ML NAS SCH ×2 (09:10→20:57)
[2022-04-10] MEDS: ASPIRIN EC 81 MG TAB PO SCH (09:10)
--- NOTE | 2022-04-10 13:58 | EKG ---
Test Date: 2022-04-07 Test Time: 00:43:09 Cop: AURY MEASUREMENT RESULTS: Intervals: Rate: 102 [place]: 156 QRSD: 78 QT: 312 QTc: 406 [place]: P: 76 [place]: 156 QRS: 21 T: 83 INTERPRETIVE STATEMENTS: Sinus tachycardia with premature atrial complexes Anteroseptal infarct, age undetermined Abnormal ECG Compared to ECG 03/23/2022 18:21:43 Atrial premature complex(es) now present Sinus rhythm no longer present Myocardial infarct finding still present Electronically Signed On 04-10-22 13:50:43 CDT by Audi Dang
--- NOTE | 2022-04-10 15:15 | P.PN ---
Subjective Date of Service: 04/10/22 Chief Complaint: COVID-19 pneumonia Patient seen and examined TB QuantiFERON assay and AFB culture pending. Patient aerating well on room air, denies nausea/vomiting/diarrhea. Afebrile hemodynamically stable. WBC within normal range, creatinine and liver function stable. On Levaquin day 4. Review of Systems 10-point ROS is otherwise unremarkable Physical Examination - Vital Signs Temperature: 98.4 F Blood Pressure: 90/49 Pulse: 82 Respirations: 16 Pulse Ox (%): 98 - Studies Microbiology Data (last 24 hrs): 04/07/22 06:26 Sputum Sputum Gram Stain - Final 04/07/22 06:26 Sputum Culture & Sensitivity - Final Medications List Reviewed: Yes Assessment And Plan - Plan Physical Exam General: Alert, In no apparent distress, Cachectic HEENT: Other (Fluid levels demonstrated behind tympanic membranes bilaterally, bilateral boggy erythematous nasal turbinates) Neck: Other (Postnasal drip) Respiratory: Clear to auscultation bilaterally, Normal air movement Cardiovascular: No edema, Regular rate/rhythm, Normal S1 S2 Gastrointestinal: Soft and benign, Non-distended Musculoskeletal: No clubbing, No swelling, No contractures Integumentary: No rashes, No breakdown, No significant lesion Neurological: Normal speech, Cranial nerves 3-12 intact Lymphatics: No axilla or inguinal lymphadenopathy Conclusions/Impression: Antibiotics: Levaquin: 7/8current Assessment/plan Acute COVID-19 infection Patient aerating well on room air Continue ipratropium bromide and albuterol nebulized treatments -azelastine nasal spray ordered for head congestion/ear pain Pneumonia versus COPD exacerbation -Chest x-ray findings consistent with possible atypical Mycobacterium infection. CT chest showed hyperinflation of lungs, parenchymal fibrosis, and multiple bilateral pulmonary parenchymal nodules. 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 Recommend outpatient follow-up with pulmonology, patient may benefit from anti- inflammatory/immunosuppressive/antifibrotic agents. Patient is not up-to-date on her pneumococcal or influenza vaccine and does not wish to be vaccinated. Quantiferon TB Gold pending Sputum AFB pending Blood cultures show no growth -Respiratory culture grew normal respiratory sinai and 3+ yeast. -Patient has a history of tuberculosis which was first diagnosed in the early , patient states that she was treated and cleared in 1995. -Recommend continuing Levaquin at this time Plan of care discussed with Dr. Macedo Thank you for consultation
[2022-04-10] MEDS: ENSURE ENLIVE 237 ML CAN PO SCH (20:58)
[2022-04-11 00:41] VITALS: O2SAT 96
[2022-04-11] MEDS ORDERED: MORPHINE 2 MG/ML SYR IV PRN (01:58)
[2022-04-11] MEDS: PANTOPRAZOLE 40MG TABLET PO SCH (05:40)
[2022-04-11] MEDS: LEVOTHYROXINE SOD 0.112 MG TAB PO SCH (05:40)
[2022-04-11] MEDS: AZELASTINE NASAL SPRAY 30 ML NAS SCH (09:00)
[2022-04-11] MEDS: ENSURE ENLIVE 237 ML CAN PO SCH (09:00)
[2022-04-11] MEDS: ENOXAPARIN 40 MG/0.4 ML SQ SCH (09:03)
[2022-04-11] MEDS: ASPIRIN EC 81 MG TAB PO SCH (09:03)
[2022-04-11] MEDS: Levofloxacin 750mg IV 750 MG/150 ML BAG IV SCH (09:03)
--- NOTE | 2022-04-11 11:25 | P.PN ---
Subjective Date of Service: 04/11/22 Chief Complaint: COVID-19 pneumonia Patient seen and examined at bedside. Afebrile, hemodynamically stable. WBC within normal range, hemoglobin stable. Creatinine function normalized. Review of Systems 10-point ROS is otherwise unremarkable Physical Examination - Vital Signs Temperature: 97.2 F Blood Pressure: 117/57 Pulse: 82 Respirations: 18 Pulse Ox (%): 98 - Studies Laboratory Last Values WBC 10.5 K/uL (4.3-10.9) 04/07/22 00:28 RBC 4.27 M/uL (3.86-4.86) 04/07/22 00:28 Hgb 12.1 g/dL (12.0-15.0) 04/07/22 00:28 Hct 37.2 % (36.0-45.0) 04/07/22 00:28 MCV 87.1 fL (80-100) 04/07/22 00:28 MCH 28.4 pg (27.0-35.0) 04/07/22 00:28 MCHC 32.7 g/dL (32.0-36.0) 04/07/22 00:28 RDW 14.5 % (12.1-15.2) 04/07/22 00:28 Plt Count 283 K/uL (152-406) 04/07/22 00:28 MPV 7.6 fL (7.6-11.3) 04/07/22 00:28 Neutrophils % 78.8 % (41.7-73.7) H 04/07/22 00:28 Lymphocytes % 10.8 % (15.3-44.8) L 04/07/22 00:28 Monocytes % 9.7 % (3.3-12.3) 04/07/22 00:28 Eosinophils % 0.1 % (0-4.4) 04/07/22 00:28 Basophils % 0.6 % (0-1.3) 04/07/22 00:28 Absolute Neutrophils 8.3 K/uL (1.8-8.0) H 04/07/22 00:28 Absolute Lymphocytes 1.1 K/uL (0.7-4.9) 04/07/22 00:28 Absolute Monocytes 1.0 K/uL (0.1-1.3) 04/07/22 00:28 Absolute Eosinophils 0.0 K/uL (0-0.5) 04/07/22 00: Absolute Basophils 0.1 K/uL (0-0.5) 04/07/22 00: PT 12.2 SECONDS (9.5-12.5) 04/07/22 00: INR 1.11 04/07/22 00:28 D-Dimer 1015 FEUng/mL (<500) H* 04/07/22 04:47 Sodium 132 mmol/L (136-145) L 04/07/22 00:28 Potassium 4.2 mmol/L (3.5-5.1) 04/07/22 00: Chloride 101 mmol/L (98-107) 04/07/22: Carbon Dioxide 25 mmol/L (21-32) 04/07/22 00: Anion Gap 10.2 mEq/L (5.0-15.0) 04/07/22 00: BUN 12 mg/dL (7-18) 04/07/22 00: Creatinine 0.90 mg/dL (0.55-1.3) 04/07/22 00: Est GFR (CKD-EPI) 67 ml/min (=/>90) L 04/07/22: Glucose 102 mg/dL (74-106) 04/07/22 00: Lactic Acid 1.4 mmol/L (0.4-2.0) 04/07/22 00: Calcium 9.0 mg/dL (8.5-10.1) 04/07/22 00: Magnesium 2.3 mg/dL (1.8-2.4) 04/07/22 00: Total Bilirubin 1.3 mg/dL (0.2-1.0) H 04/07/22 00:28 Direct Bilirubin 0.3 mg/dL (0-0.2) H 04/07/22 00:28 AST 16 U/L (15-37) 04/07/22: ALT 20 U/L (12-78) 04/07/22: Alkaline Phosphatase 123 U/L (45-117) H 04/07/22 00:28 Troponin I High Sens 4.8 pg/mL (<58.9) 04/07/22 00:28 C-Reactive Protein 32.10 mg/L (<3.00) H 04/07/22 00:28 NT-Pro-B Natriuret Pep 299 pg/mL (<450) 04/07/22 00:28 Serum Total Protein 7.8 g/dL (6.4-8.2) 04/07/22 00:28 Albumin 3.4 g/dL (3.4-5.0) 04/07/22 00:28 Globulin 4.4 g/dL (2.3-3.5) H 04/07/22 00:28 Albumin/Globulin Ratio 0.8 (1.1-1.8) L 04/07/22 00:28 Urine pH 8.5 (5.0-7.0) H 04/07/22 01:23 Ur Specific [place] 1.015 (1.005-1.030) 04/07/22 01:23 Glucose (UA)(Auto) Negative (Negative) 04/07/22 01:23 Urine Ketones Negative (Negative) 04/07/22 01:23 Urine Blood Negative (Negative) 04/07/22 01:23 Urine Nitrite Negative (Negative) 04/07/22 01:23 Ur Leukocyte Esterase Negative (Negative) 04/07/22 01:23 Urine Total Protein Negative (Negative) 04/07/22 01:23 SARS-CoV-2 Rap RNA(RT-PCR) Positive (NEGATIVE) A 04/07/22 00:39 Microbiology Data (last 24 hrs): 04/07/22 06:26 Sputum Sputum Gram Stain - Final 04/07/22 06:26 Sputum Culture & Sensitivity - Final Medications List Reviewed: Yes Assessment And Plan - Plan Physical Exam General: Alert, In no apparent distress, Cachectic Respiratory: Clear to auscultation bilaterally, Normal air movement Cardiovascular: No edema, Regular rate/rhythm, Normal S1 S2 Gastrointestinal: Soft and benign, Non-distended Musculoskeletal: No clubbing, No swelling, No contractures Integumentary: No rashes, No breakdown, No significant lesion Neurological: Normal speech, Cranial nerves 3-12 intact Lymphatics: No axilla or inguinal lymphadenopathy Conclusions/Impression: Antibiotics: Levaquin: 7/8current Assessment/plan Acute COVID-19 infection Patient aerating well on room air Continue ipratropium bromide and albuterol nebulized treatments -azelastine nasal spray ordered for head congestion/ear pain Pneumonia versus COPD exacerbation -Chest x-ray findings consistent with possible atypical Mycobacterium infection. CT chest showed hyperinflation of lungs, parenchymal fibrosis, and multiple bilateral pulmonary parenchymal nodules. 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 Recommend outpatient follow-up with pulmonology, patient may benefit from anti- inflammatory/immunosuppressive/antifibrotic agents. Patient is not up-to-date on her pneumococcal or influenza vaccine and does not wish to be vaccinated. Quantiferon TB Gold pending Sputum AFB pending Blood cultures show no growth -Respiratory culture grew normal respiratory sinai and 3+ yeast. -Patient has a history of tuberculosis which was first diagnosed in the early , patient states that she was treated and cleared in 1995. -Recommend continuing Levaquin at this time, day 5/7. Plan of care discussed with Dr. Macedo Thank you for consultation
[2022-04-11 12:10] VITALS: BP 93/51; TEMP 98.5
--- NOTE | 2022-04-11 12:18 | P.DS ---
Discharge Date: 04/11/22 Disposition: ROUTINE DISCHARGE Discharge Condition: GOOD Reason for Admission: COVID-19 pneumonia Brief History of Present Illness: 76-year-old female with history of COPD, CAD, hypothyroidism was brought into the emergency department by EMS for fever, myalgias. She was seen here at the hospital on 03/23/2022 and diagnosed with pneumonia she was discharged with a prescription for a Z-Miguelangel as well as 10 days of Augmentin which she completed a few days ago. She noticed over the course of the last day or so she has been feeling very bad having lots of aches and myalgias as well as fevers. EMS measured temperature of 102.1 and heart rate of 107 patient did have some mild shortness of breath therefore met sepsis criteria, code sepsis was called and work-up was completed patient's labs were significant for mild hyponatremia, she tested positive for COVID her chest x-ray demonstrated "findings suggest traction bronchiectasis with bronchial thickening involving bilateral upper lobes greater left than right, nodularity/small focal areas of airspace opacity right upper lobe zone correspond most likely to mucous plugging/bronchial thickening related to atypical mycobacterial infection". Patient was given bebtelovimab monoclonal antibodies in the emergency department ED provider wishes to admit for further evaluation and management of COVID-19/possible mycobacterial infection. Hospital Course: Patient clinically doing well with no complaints. Patient is back to her baseline. She is ambulating without difficulty. At this time, patient is stable for discharge home with outpatient follow-up. For the follow-up Pulmonary as an outpatient closely. Continue with antibiotic therapy. Vital Signs/Physical Exam: Temp Pulse Resp BP Pulse Ox 98.5 F 87 18 93/51 L 97 04/11/22 12:00 04/11/22 12:00 04/11/22 12:00 04/11/22 12:00 04/11/22 12:00 General: Alert, In no apparent distress, Oriented x3 Laboratory Data at Discharge: WBC 6.2 K/uL (4.3-10.9) D 04/10/22 05:05 Hgb 10.9 g/dL (12.0-15.0) L 04/10/22 05:05 Hct 32.8 % (36.0-45.0) L 04/10/22 05:05 Plt Count 240 K/uL (152-406) 04/10/22 05:05 PT 12.2 SECONDS (9.5-12.5) 04/07/22 00:28 INR 1.11 04/07/22 00:28 Sodium 141 mmol/L (136-145) 04/10/22 05:05 Potassium 4.1 mmol/L (3.5-5.1) 04/10/22 05:05 BUN 19 mg/dL (7-18) H 04/10/22 05:05 Creatinine 0.67 mg/dL (0.55-1.3) 04/10/22 05:05 Glucose 89 mg/dL (74-106) 04/10/22 05:05 Magnesium 2.1 mg/dL (1.8-2.4) 04/10/22 05:05 Total Bilirubin 0.6 mg/dL (0.2-1.0) 04/10/22 05:05 AST 15 U/L (15-37) 04/10/22 05:05 ALT 17 U/L (12-78) 04/10/22 05:05 Alkaline Phosphatase 87 U/L (45-117) 04/10/22 05:05 Home Medications: Albuterol Sulfate [Albuterol Sulfate 0.083% Neb Soln] 2.5 mg IH Q6HP PRN 10/31/16 Aspirin [Aspir-Low] 81 mg PO DAILY 10/31/16 Biotin 5,000 mcg PO DAILY 10/31/16 Calcium Carbonate [Calcium] 500 mg PO DAILY 10/31/16 Cholecalciferol (Vitamin D3) [Vitamin D3] 2,000 iu PO DAILY 10/31/16 Ferrous Sulfate 65 mg PO DAILY 10/31/16 Levothyroxine [Synthroid*] 137 mcg PO DAILY 10/31/16 Loratadine [Allergy Relief] 10 mg PO PRN PRN 10/31/16 [place]-3 Fatty Acids [Fish Oil] 300 mg PO DAILY 10/31/16 carvediloL [Coreg*] 3.125 mg PO BID #60 tab 10/31/16 Pantoprazole [Protonix Tab*] 20 mg PO DAILYAC 01/05/17 Azithromycin Tab [Zithromax*] 250 mg PO DAILY #7 tab 01/10/17 Albuterol Neb [Proventil 0.083% Neb Soln] 2.5 mg IH Q6HR #60 amp 04/11/22 Benzonatate [Tessalon Perle] 100 mg PO TID 10 Days #30 cap 04/11/22 Ensure Enlive 0 ml PO BID 30 Days #60 can 04/11/22 Ipratropium Neb [Atrovent Neb] 0.5 mg IH Q6H #60 amp 04/11/22 Levothyroxine [Synthroid] 0.112 mg PO [id number] 30 Days #30 tab 04/11/22 Pantoprazole [Protonix Tab] 40 mg PO DAILY 30 Days #30 tab 04/11/22 New Medications: Ipratropium Neb [Atrovent Neb] 0.5 mg IH Q6H #60 amp Ensure Enlive 0 ml PO BID 30 Days #60 can Pantoprazole [Protonix Tab] 40 mg PO DAILY 30 Days #30 tab Albuterol Neb [Proventil 0.083% Neb Soln] 2.5 mg IH Q6HR #60 amp Levothyroxine [Synthroid] 0.112 mg PO [id number] 30 Days #30 tab Benzonatate [Tessalon Perle] 100 mg PO TID 10 Days #30 cap Physician Discharge Instructions: -DC IV and DC home -Follow-up with PCP in 1 to 2 weeks -Follow-up with Pulmonary in 1 to 2 weeks -Please call Dr. Myers at [phone] if any questions regarding hospital stay -Please call nursing station at [phone] if any nursing or medication questions -Return to the emergency room if symptoms worsen Diet: AHA Activity: Fall precautions Followup: Erik Pires MD [ACTIVE - CAN ADMIT] - Ulices Torrez MD [Primary Care Provider] - Time spent managing pt's care (in minutes): 35
--- NOTE | 2022-04-11 12:18 | P.PN ---
Date of Service: 04/10/22 Subjective Improving, Doing well, Other (on room air) Physical Examination - Vital Signs REVIEWED - Physical Exam General: Alert, In no apparent distress, Oriented x3 Respiratory: Diminished, Crackles/rales, Rhonchi/gurgles (faint) Cardiovascular: Regular rate/rhythm, Normal S1 S2, No gallops, No rubs, No murmurs Gastrointestinal: Normal bowel sounds, Soft and benign, No tenderness, No rebound, No guarding Neurological: NO FOCAL DEFICITS Assessment And Plan - Plan 1. Possible Viral Sepsis secondary to COVID-19 Pneumonia +/- Atypical Mycobacterial Pneumonia 2. History of Tuberculosis s/p treatment (in ) 3. Chronic Obstructive Pulmonary Disease 4. Coronary Artery Disease 5. Hypothyroidism 6. Gastroesophageal Reflux Disease 7. History of Breast Cancer s/p Breast Cancer Removal Plan: 1. Continue with IV antibiotics 2. Awaiting sputum and blood culture 3. Repeat chest x-ray 4. Appreciate pulmonary consultation 5. Continue with nebs as needed 6. O2 per protocol 7. Continue with gentle hydration 8. Repeat labs including CBC and renal function in a.m. 9. GI and DVT prophylaxis
--- OUTSIDE RECORDS SUMMARY | 2022-04-19 17:52 | XMS REPORT | Continuity of Care Document ---
:[address] [facility] t Address [address] [place] [address] Care Team Providers Name Role Phone ZACK OROZCO Primary Care Physician Unavailable Ana GODFREY Attending Clinician Unavailable Ana Godfrey DO Attending Clinician Lab, Fam Pob I Attending Clinician Unavailable KENTRELL Attending Clinician Unavailable [place] [facility] Attending Clinician Ana GODFREY Admitting Clinician Unavailable Payers Payer Name Policy Type Policy Number Effective Date Expiration Date Lito jenniferpoppy CLEOPATRA/GÓMZE [id number] 2020 MEDICARE ADVANTAGE 00:00:00 Problems Condition Condition Condition Status Onset Resolution Last Treating Co mments Source Name Details Category Date Date Treatment Clinician Date No known No known Disease Unive rs active active ity of problems problems [facility] Allergies, Adverse Reactions, Alerts Allergy Allergy Status Severity Reaction(s) Onset Inactive Treating Comm ents Source Name Type Date Date Clinician Codeine Propensi Active Rash 2006-10 Univers ty to 0-26 ity of adverse 00:00: [place] reaction 00 [facility] CODEINE DRUG Active Rash 2006-10 Univers INGREDI 0-26 ity of 00:00: [place] [facility] MEPERIDI DRUG Active CONTACT DERM 2006-10 Un [place] HCL INGREDI 0-26 ity of 00:00: [place] [facility] Meperidi Propensi Active Dermatis, 2006-10 Uni vers ne Hcl ty to Contact 0-26 ity of adverse 00:00: [place] reaction [facility] Social History Social Habit Start Date Stop Date Quantity Comments Source History of tobacco Cigarette Smoker [facility] Exposure to 2022-02-15 2022-02-25 Not sure University SARS-CoV-2 (event) 00:00:00 10:17:00 [facility] Cigarettes smoked 2018-07-15 2018-07-15 Univers ity of current (pack per 00:00:00 00:00:00 [facility] ) - Reported Branch Cigarette 2018-07-15 2018-07-15 [place] of pack-years 00:00:00 00:00:00 [facility] Alcohol intake 2018-07-15 2018-07-15 University of 00:00:00 00:00:00 [facility] Tobacco Comment 2007-07-26 2007-07-26 Quit twenty [facility] of 00:00:00 00:00:00 Years ago. [facility]igned At [birth year] [place] [facility] Smoking Status Start Date Stop Date Source Former smoker 2018-07-15 00:00:00 2018-07-15 00:00:00 [place] [facility] Medications Ordered Filled Start Stop Current Ordering [...] mouth ity o f tablet 12:44: daily. [place] 14 [facility] Levothyroxi Yes 112ug Take 112 U nivers [...] Pork, 8-11 mouth. ity of (ARMOUR 17:58: [place] THYROID) 90 40 Medical mg Tab Branch Thyroid, Yes Take by Unive rs Pork, 8-11 mouth. ity of (ARMOUR 17:58: [place] THYROID) 90 40 Medical mg Tab Branch traMADOL Yes 50mg Take 1 Tab Uni vers (ULTRAM) 50 8-11 by mouth 2 it y of mg tablet 00:00: (two) [place] 00 times Medical daily Branch before breakfast and dinner. traMADOL Yes 50mg Take 1 Tab Uni vers (ULTRAM) 50 8-11 by mouth 2 it y of mg tablet 00:00: (two) [place] 00 times Medical daily Branch before breakfast and dinner. traMADOL Yes 50mg Take 1 Tab Uni vers (ULTRAM) 50 8-11 by mouth 2 it y of mg tablet 00:00: (two) [place] 00 times Medical daily Branch before breakfast and dinner. ALBUTEROL 2006-10 Yes 2 puffs Unive rs 90 0-26 BID PRN ity of MCG/ACTUATI 19:54: [place] ON INHALE 27 Medical AERO Branch ALBUTEROL 2006-10 Yes 2 puffs Unive rs 90 0-26 BID PRN ity of MCG/ACTUATI 19:54: [place] ON INHALE 27 Medical AERO Branch ASPIRIN 81 2006-10 Yes 1 Tab Oral U nivers MG ORAL 0-04 DAILY ity of CHEW 00:00: [facility] ASPIRIN 81 2006-10 Yes 1 Tab Oral U nivers MG ORAL 0-04 DAILY ity of CHEW 00:00: 00 [facility] ASPIRIN 81 2006-10 Yes 1 Tab Oral U nivers MG ORAL 0-04 DAILY ity of CHEW 00:00: [place] 00 [facility] Immunizations Ordered Filled Immunization Date Status Comments [facility] e Immunization Name Name Influenza Virus 2007-07-26 Completed Universit y of Vaccine 00:00:00 [facility] Influenza Virus 2007-07-26 Completed Universit y of Vaccine 00:00:00 [facility] Influenza Virus 2007-07-26 Completed Universit y of Vaccine 00:00:00 [facility] Vital Signs Vital Name Observation Time Observation Value Comments Source Systolic blood 2022-02-25 17:30:00 123 mm[Hg] Univer sity [facility] Diastolic blood 2022-02-25 17:30:00 69 mm[Hg] [facility] Heart rate 2022-02-25 17:30:00 77 /min [facility] Respiratory rate 2022-02-25 17:30:00 20 /min [facility] Oxygen saturation in 2022-02-25 17:30:00 96 /min [facility] Arterial blood by [facility] Pulse oximetry [place] Body temperature 2022-02-25 15:18:00 36.72 Milena [facility] Body height 2022-02-25 15:18:00 182.9 cm [facility] Body weight 2022-02-25 15:18:00 40.824 kg [facility] BMI 2022-02-25 15:18:00 12.21 kg/m2 [facility] Procedures Procedure Date / Time Performed Performing Clinician Sourc e XR CHEST 1 VW 2022-02-25 15:41:52 Sharyn Godfrey [facility] MAGNESIUM 2022-02-25 15:35:00 Sharyn Godfrey [facility] TROPONIN I 2022-02-25 15:35:00 Sharyn Godfrey [facility] COMP. METABOLIC PANEL 2022-02-25 15:35:00 Sharyn Godfrey [facility] ([id number]) [facility] CBC WITH DIFF 2022-02-25 15:35:00 Sharyn Godfrey [facility] N-TERMINAL PRO-BNP 2022-02-25 15:35:00 Sharyn Godfrey [facility] CONSENT/REFUSAL FOR 2022-02-25 15:16:41 [facility]igned, [facility] AND Name [facility] TREATMENT NOTICE OF PRIVACY 2022-02-25 15:12:25 Doctor Unassigned, No Univ [facility] PRACTICES Name [facility] Encounters Start End Encounter Admission Attending Care Care Encounter Source Date/Time Date/Time Type Type Clinicians Facility Department ID 2022-02-25 2022-02-25 Emergency X EPIFANIO OKNEYMAR ERT [id number] Univers 10:22:00 12:49:00 SHARYN wolf [facility] [place] 2022-02-25 2022-02-25 [facility] [id number] Univers 10:22:00 12:49:00 Sharyn JOSE [id number] ity [id number] [id number] [address] 2020-08-27 2020-08-27 Telephone Lab, [facility] [id number] Univers 00:00:00 00:00:00 Fam Pob I Health [id number] ity of [place] [id number] Kar as Professio [id number] [address] Office [facility] 2020-08-24 2020-08-24 Outpatient R [facility] [id number] Univers 15:00:00 15:00:00 [id number] maryann [facility] [place] 2020-08-23 2020-08-23 Outpatient R KENTRELL [facility] [id number] Univers 16:00:00 16:00:00 CLAUDIA wolf [facility] [place] 2020-08-23 2020-08-23 Laboratory Lab, [facility] Pob I [facility] [id number] Univers 15:23:19 15:43:19 Only Claudia Pfeiffer [id number] ity of [place] [id number] Kar as Professio [id number] [address] Office [facility] Results Test Description Test Time Test Comments Results Result Comments Source TROPONIN I 2022-02-25 16:38:04 Test Item Value Reference Range Interpretation Comme nts TROPONIN I (test code = <0.012 See_Comment [Au tomated message] The 4361034371) system which ge nerated this result tra [...] biotin. Lab Interpretation Normal (test code = 70868-5) [id number] 16:34:43 Test Item Value Reference Range Interpretation Comments NT-proBNP (test code 422 pg/mL See_Comment [Autom ated = 1977333085) message] The system which generated this result transmitted reference range : <=450. The reference range was not used to interpret this result as normal/abnormal . LORRI (test code = LORRI) Biotin has been reported to cause a negative bias, interpret results relative to patient's use of biotin. Lab Interpretation Normal (test code = 79421-9) [facility] 16:26:26 Test Item Value Reference Range Interpretation Comments MAGNESIUM (test code = 3679360292) 1.9 mg/dL 1.7-2.4 Lab Interpretation (test code = Normal 65040-4) [facility] ([id number])2022-02-25 16:26:06 Test Item Value Reference Range Interpretation Comments NA (test code = 140 mmol/L 135-145 9880811618) K (test code = 4.1 mmol/L 3.5-5.0 3039657945) CL (test code = 102 mmol/L 98-108 2845124565) CO2 TOTAL (test code = 24 mmol/L 23-31 4019236842) AGAP (test code = 2-16 1937684180) BUN (test code = 18 mg/dL 7-23 1028310027) GLUCOSE (test code = 125 mg/dL 70-110 H 6392941994) CREATININE (test code = 0.79 mg/dL 0.50-1.04 8927731932) TOTAL BILI (test code = 1.2 mg/dL 0.1-1.1 H 4761361853) CALCIUM (test code = 9.2 mg/dL 8.6-10.6 8480921799) T PROTEIN (test code = 7.8 g/dL 6.3-8.2 0583368844) ALBUMIN (test code = 4.2 g/dL 3.5-5.0 4940898665) ALK PHOS (test code = 124 U/L 34-122 H 1198635821) ALTv (test code = 10 U/L 5-35 1742-6) AST(SGOT) (test code = 23 U/L 13-40 0614582359) eGFR (test code = mL/min/1.73m2 0001185184) LORRI (test code = LORRI) Association of [...] tests). Lab Interpretation Abnormal (test code = 33029-5) [facility] WITH [id number] 16:09:42 Test Item Value Reference Range Interpretation [...] RDW-SD (test code = 41.1 fL 39.0-49.9 91889-6) RDW-CV (test code = 12.7 % 12.0-15.5 788-0) PLT (test code = See_Comment [Automated 777-3) message] The sy stem which generated this result transmitted reference range : 166 - 358 10*3/ ?L. The reference r lyndsey was not used to interpret this result as normal/abnormal . MPV (test code = 9.9 fL 9.5-12.9 48213-6) NRBC/100 WBC (test See_Comment [Automat ed code = 6732803376) message] The system which generated this result transmitted reference range : 0.0 - 10.0 /100 WBCs. The refer ence range was not u sed to interpret th is result as normal/abnormal . NRBC x10^3 (test code <0.01 See_Comment [Auto mated = 0507944393) message] The s ystem which generated this result transmitted reference range : 10*3/?L. The reference range was not used to interpret this result as normal/abnormal . GRAN MAT (NEUT) % 66.9 % (test code = 770-8) IMM GRAN % (test code 0.40 % = 4742598396) LYMPH % (test code = 21.0 % 736-9) MONO % (test code = 10.2 % 5905-5) EOS % (test code = 0.7 % 713-8) BASO % (test code = 0.8 % 706-2) GRAN MAT x10^3(ANC) 7.10 10*3/uL 1.88-7.09 H (test code = 7311411593) IMM GRAN x10^3 (test 0.04 10*3/uL 0.00-0.06 code = 4820919893) LYMPH x10^3 (test code 2.23 10*3/uL 1.32-3.29 = 731-0) MONO x10^3 (test code 1.08 10*3/uL 0.33-0.92 H = 742-7) EOS x10^3 (test code = 0.07 10*3/uL 0.03-0.39 711-2) BASO x10^3 (test code 0.08 10*3/uL 0.01-0.07 H = 704-7) Lab Interpretation Abnormal (test code = 14666-2) [facility]"
== END 2022-04-11 13:40 | disposition home or self-care (01) | DRG 871 ==
LOC: ER 00:04 → ERHOLD 02:46 → OBSVTOIN 12:04 → 2ND 16:22 → 4TH 04-09 07:50
PROVIDERS: ADMIT Internal Medicine; ATTEND Internal Medicine
DX: A41.89 Other specified sepsis (principal); U07.1 COVID-19; J12.82 Pneumonia due to coronavirus disease 2019; R64 Cachexia; Z68.1 Body mass index [BMI] 19.9 or less, adult; A31.0 Pulmonary mycobacterial infection; E87.1 Hypo-osmolality and hyponatremia; J44.9 Chronic obstructive pulmonary disease, unspecified; I25.10 Atherosclerotic heart disease of native coronary artery without angina pectoris; E03.9 Hypothyroidism, unspecified; K21.9 Gastro-esophageal reflux disease without esophagitis; Z85.3 Personal history of malignant neoplasm of breast; Z87.891 Personal history of nicotine dependence; Z86.11 Personal history of tuberculosis; Z28.310 Unvaccinated for COVID-19; Z86.16 Personal history of COVID-19; Z88.2 Allergy status to sulfonamides
CPT/HCPCS: 36415; 71045; 71275; 80048; 80053; 80076; 81003; 83605; 83735; 83880; 84145; 84484; 85025; 85379; 85610; 85652; 86140; 86480; 87015; 87040; 87070; 87086; 87088; 87116; 87205; 87206; 87804; 93005; 93970; 96365; 96366; 96367; 96375; 99285; G0378; J0456; J1650; J2185; J2270; J2930; J7030; J7040; J7050; Q9967; U0003